=== PATIENT | male | born 1950 | race Caucasian/White ===

== ENCOUNTER → 2017-12-11 07:21 | Outpatient (CLI) | payer MEDICARE, SELFPAY ==
--- NOTE | 2017-12-11 07:23 | CT_ITS ---
STUDY: CT ABDOMEN AND PELVIS WITH CONTRAST REASON FOR EXAM: Male, 67 years old. Epigastric abdominal pain. RADIATION DOSAGE (If Supplied By Facility): CTDIvol = ( 13.08 ) mGy, DLP = ( 661.21 ) mGycm TECHNIQUE: Transaxial images were obtained from the dome of the diaphragm to the symphysis pubis with oral contrast. 100 ml of Isovue 300 contrast was administered. Sagittal and coronal images were reconstructed. Individualized dose optimization techniques were used for this CT. COMPARISON: Prior comparison studies are not available for review at this time. FINDINGS: There is heterogeneous groundglass attenuation at the right lung base. This may be the result of atelectasis or early airspace disease. There is a curvilinear opacity in left lower lobe that may represent subsegmental atelectasis or pulmonary fibrosis. No pleural effusions are visualized. The visualized portions of the heart are within normal limits. Normal liver. There is non-visualization of the gallbladder, which may be secondary to either contraction or a prior cholecystectomy. Normal spleen. Normal pancreas. Normal bilateral adrenal glands. There is a small cystic lesion arising from the posterior cortex of the upper pole of the right kidney measuring 6.5 mm. This is too small to characterize. There is no evidence for hydronephrosis, hydroureter or radiopaque ureteral calculus. Normal left kidney. The gastric wall appears mildly thickened measuring approximately 2.4 cm. There is no evidence for dilated bowel, ascites or pneumoperitoneum. Small bowel has a grossly normal appearance. Stool and enteric contrast is visible throughout the colon with scattered diverticula. There is non-visualization of the appendix. There is mild atherosclerotic calcification of the abdominal aorta, without a demonstrated aneurysm. Normal inferior vena cava. Normal retroperitoneum. Normal urinary bladder. Normal visualized prostate gland. Normal abdominal wall. There is degenerative disc disease at L4-5 with a large Schmorl's node of the inferior endplate of L4. CT/Abdomen/Pelvis WITH Contrast IMPRESSION: 1. Nonspecific thickening of the gastric wall. 2. No CT evidence of acute intra-abdominal disease. Electronically Signed: Malika Hollingsworth MD at 11:27 EDT , Service support ,
[2017-12-11 08:06] LABS: CREATININE FINGERSTICK 1.1 mg/dL (0.70-1.30); EGFR FINGERSTICK > 60.0000 mL/min (>60)
== END ==
PROVIDERS: Family Provider Family Medicine; PCP Family Medicine; Visit Provider Surgery
DX: R10.9 Unspecified abdominal pain (principal); R89.9 Unspecified abnormal finding in specimens from other organs, systems and tissues
CPT/HCPCS: 74177; Q9967

== ENCOUNTER 2017-12-13 05:43 | Day surgery (SDC) | payer MEDICARE, SELFPAY ==
--- NOTE | 2017-12-13 | IMM_PTH ---
PATIENT: ESTHER BALL LOC: EN U#:[id number] AGE/SX: 67/M ROOM: RE12/13/[address]: Dr. Sundeep Holland MD : 1950 BED: DIS: 12/13/2017 SPEC #: [id number] RECD: 12/14/17 11:31 STATUS: LATESHA REOwen #: [id number] FRANK: 12/13/17 00:[address]: Sundeep Holland DEPT: IMMUNOHISTOCHEMISTRY RECD BY: Julissa Chen ENTERED: 12/14/17 11:31 SP TYPE: IMMUNO OTHR DR: Dr. Aldo Ball MD Tissues: A - Stomach, NOS Procedures: H Pylori (initial) PHYSICIAN & INSTITUTION [place] [id number] SPECIMEN INFORMATION: Tissue Source: A ? Antral biopsy Clinical Info: History ulcer, right upper quadrant pain Specimen Number: [id number] CPT code: 26321 METHODOLOGY: Deparaffinized sections of prefer/formalin-fixed tissue or PAP/DQ stained slides are incubated with monoclonal/polyclonal antibodies/oligonucleotide probes. Localization is made via biotin free immunoperoxidase method. Appropriate controls are performed and reacted as expected. Results on target cell population are indicated in the following table: RESULTS: ANTIBODY / CLONE RESULT Block A H Pylori (polyclonal) negative These tests were developed and their performance characteristics determined by [facility]. They may not have been cleared or approved by the U.S. Food and Drug Administration. The FDA has determined that such clearance or approval is not necessary. INTERPRETATION: A. Antral biopsy: Negative for Helicobacter pylori organisms. SJ:chase 12/14/17
[2017-12-13 06:05] VITALS: BP 121/88; PULSE 90; RESP 16; TEMP 36.6; O2SAT 98; BMI 22.6
--- NOTE | 2017-12-13 07:18 | GASB_PTH ---
PATIENT: ESTHER BALL LOC: EN U#:[id number] AGE/SX: 67/M ROOM: RE12/13/[address]: Dr. Sundeep Holland MD : 1950 BED: DIS: 12/13/2017 SPEC #: [id number] RECD: 12/13/17 08:03 STATUS: LATESHA EVELINE #: [id number] FRANK: 12/13/17 07:[address]: Sundeep Holland DEPT: SURGICAL PATHOLOGY RECD BY: Mark Payton ENTERED: 12/13/17 08:03 SP TYPE: Gastric Bx OTHR DR: Dr. Aldo Ball MD Tissues: A - Gastric mucous membrane B - Esophageal mucous membrane Procedures: Special Stain Group II Surgery Specimen Level IV Alcian Blue/PAS (control) HEADER OPERATION: EGD PRE-OP DIAGNOSIS: History ulcer, right upper quadrant pain TISSUE SUBMITTED: A ? Antral biopsy for histo and H. pylori, B ? Distal esophageal biopsy MICROSCOPIC DIAGNOSIS A. Antral biopsy: Mild gastritis. See microscopic description and comment. B. Distal esophageal biopsy: Fragments of gastroesophageal mucosa with changes consistent with gastroesophageal reflux disease. Negative for intestinal metaplasia (goblet cell metaplasia). See comment. SJ:chase 12/14/17 COMMENT A. The results of immunohistochemistry for Helicobacter pylori will be reported separately ([id number]). B. Alcian blue/PAS stain with matched control is used in the evaluation of the specimen. MICROSCOPIC DESCRIPTION Slides are reviewed. A. The specimen shows fragments of gastric mucosa with chronic inflammatory cell infiltrates in the lamina propria consisting of lymphocytes and plasma cells, consistent with mild chronic gastritis. GROSS DESCRIPTION A - Received in fixative is one container labeled with the patient's name and designated antral biopsy. The specimen consists of multiple irregular fragments of light perry soft tissue that in aggregate measure 1 x 0.2 x 0.1 cm. The specimen is totally submitted in one cassette. B - Received in fixative is one container labeled with the patient's name and designated distal esophageal biopsy. The specimen consists of multiple irregular fragments of light perry soft tissue that in aggregate measure 2 x 0.3 x 0.1 cm. The specimen is totally submitted in one cassette. / [place]:chase 12/13/17 TC:3 CPT: 00517 x2, 08767
[2017-12-13 07:29] VITALS: BP 121/88; BP 122/57; RESP 18; TEMP 36.6
--- NOTE | 2017-12-13 07:31 | PCM.OPRPT ---
Problem List (1) Epigastric abdominal pain Status: Acute Report of Operation Date of Procedure: 12/13/17 Pre-Operative Diagnosis: Epigastric abdominal pain Post-Operative Diagnosis: Recinos's esophagus, hiatal hernia, mild antral gastritis Surgery/Procedure Performed:: Esophagogastroduodenoscopy with biopsies Description of Surgical Findings:: Timeout and informed consent was obtained. 67-year-old gentleman was taken to the endoscopy suite. His oropharynx was anesthetized with Topex. He was placed in the left lateral decubitus position. The procedure total of 75 g Demerol and 3.5 mg of Versed were given as intravenous sedation. Flexible gastroscope was inserted into the esophageal inlet. Proximal mid esophagus unremarkable. Hiatal hernia noted EG junction at 44 cm. Findings consistent with Recinos's esophagus. Photographs obtained. The scope was advanced in the stomach very minimal amount of erythema in the antrum noted. The scope was advanced through the pylorus. The first and second portions of the duodenum were very carefully inspected. Photographs were obtained. No evidence of acute inflammation or ulceration. The scope was withdrawn back to the stomach retroflexed the EG junction cardia inspected. A hiatal hernia noted. The greater and lesser curvatures were inspected. The scope was placed back in an antegrade viewing position. Mild erythema of the antrum noted. Biopsies obtained of the antrum. Excess fluid and air was aspirated free. The scope was withdrawn to the distal esophagus. Findings consistent with Recinos's esophagus were identified. The Recinos's appeared to extend just for 2 cm. Multiple biopsies were obtained at that distal esophageal junction. Hemostasis was intact. The scope was further withdrawn without additional abnormality. The procedure was completed with the patient tolerating it well. Impression Hiatal hernia small to moderate. Recinos's esophagus 2 cm. Mild antral gastritis. The patient will be notified of pathology results as they become available. Consideration for follow-up esophagogastroduodenoscopy no greater than 3 years. The patient will be maintained presently on his Nexium therapy. Cc: Dr. Aldo Ball Stage was initiated at 0718. It was completed at 0725 Sundeep Holland M.D., F.A.C.S. Type of Anesthesia:: IV Sedation
[2017-12-13 07:35] VITALS: BP 121/88; BP 125/62; PULSE 82; RESP 16; O2SAT 96
[2017-12-13 07:40] VITALS: BP 118/50; BP 121/88; PULSE 81; RESP 16; O2SAT 96
[2017-12-13 07:49] VITALS: BP 120/58; BP 121/88; PULSE 75; RESP 18; TEMP 36.6; O2SAT 99
[2017-12-13 07:55] VITALS: BP 121/88
== END 2017-12-13 08:22 | disposition home or self-care (01) ==
LOC: EN 05:47 → AC 05:48
PROVIDERS: Family Provider Family Medicine; PCP Family Medicine; Visit Provider Surgery
PROC: (CPT 43239; principal; 2017-12-13 06:55)
DX: K22.70 Barrett's esophagus without dysplasia (principal); K44.9 Diaphragmatic hernia without obstruction or gangrene; K29.70 Gastritis, unspecified, without bleeding; J44.9 Chronic obstructive pulmonary disease, unspecified; Z90.49 Acquired absence of other specified parts of digestive tract
CPT/HCPCS: 43239; 88305; 88313; 88342; 99152; J7120

== ENCOUNTER → 2019-05-16 11:20 | Outpatient (CLI) | payer MEDICARE, SELFPAY ==
[2018-11-19 08:08] VITALS: BMI 22.6
--- NOTE | 2019-05-16 11:24 | RAD_ITS ---
STUDY: X-RAY - LEFT HAND, ATTENTION first digit REASON FOR EXAM: Male, 69 years old. pricked by a metal object, tip of left thumb about 3 months ago, possible foreign body still, some pain TECHNIQUE: 3 view(s) of the digit were obtained. COMPARISON: None. FINDINGS: Normal metacarpal head. Normal metacarpophalangeal joint. Normal proximal phalanx. Normal distal phalanx. Normal interphalangeal joint. No radiopaque foreign body. RAD/Finger(s) Min 2 Views IMPRESSION: No radiopaque foreign body. Electronically Signed: Santana Michaels MD (Brooks) at 14:37 EST , Service support ,
== END ==
PROVIDERS: Family Provider Family Medicine; PCP Family Medicine; Referring Provider Family Medicine; Visit Provider Family Medicine
DX: S60.352A Superficial foreign body of left thumb, initial encounter (principal)
CPT/HCPCS: 73140

== ENCOUNTER → 2019-08-11 14:51 | Outpatient (CLI) | payer MEDICARE, SELFPAY ==
[2018-11-19 08:08] VITALS: BMI 22.6
[2019-08-11 16:19] LABS: PSA,Total - Annual Screen 0.72 ng/mL (0.00-4.00)
== END ==
PROVIDERS: PCP Family Medicine; Referring Provider Urology; Visit Provider Urology
DX: Z12.5 Encounter for screening for malignant neoplasm of prostate (principal)
CPT/HCPCS: 36415; 84153; G0103

== ENCOUNTER → 2020-08-11 10:00 | Outpatient (CLI) | payer MEDICARE, SELFPAY ==
[2018-11-19 08:08] VITALS: BMI 22.6
--- NOTE | 2020-08-05 09:58 | EKG12_ITS ---
Test Reason : PRE SURGERY Blood Pressure : / mmHG Vent. Rate : 089 BPM Atrial Rate : 089 BPM P-R Int : 140 ms QRS Dur : 088 ms QT Int : 328 ms P-R-T Axes : 089 100 -46 degrees QTc Int : 399 ms Normal sinus rhythm Right atrial enlargement T wave abnormality, consider inferior ischemia T wave abnormality, consider anterolateral ischemia Abnormal ECG Confirmed by BELKIS PRICE, RAIZA ([id number]), editor publications YG FARMER ([id number]) on 08/06/2020 8:35:16 AM Referred By: German Barajas Confirmed By:LUIS MIGUEL TAMAYO MD
[2020-08-05 10:26] LABS: Absolute Lymphocyte Count 1.01 X10^3/uL (0.83-4.51); Absolute Neutrophil Count 6.6 X10^3/uL (2.0-7.7); Basophil# 0.03 X10^3/uL; Basophil% 0.3 % (0-1); Eosinophil# 0.33 X10^3/uL; Eosinophils% 3.8 % (0-5); Hematocrit 45.7 % (40-54); Hemoglobin 14.9 g/dL (13.0-16.5); Lymphocyte # 1.01 X10^3/ul (4.0); Lymphocyte % 11.6 % (19-41); Mean Corp Hgb Conc 32.6 g/dL (32-36); Mean Corpuscular Hgb 30.7 pg (27.0-32.0); Mean Corpuscular Volume 94.2 fL (80-94); Mean Platelet Vol. 10.2 fl (6.2-12.0); Monocyte# 0.75 X10^3/uL; Monocyte% 8.6 % (0-10); NRBC Flagged by Analyzer 0 % (0-5); Neutrophil # 6.55 X10^3/uL (2.7-7.7); Neutrophil % 75.5 % (47-70); Platelet Count 175 K/mm3 (150-450); RBC Distribution Width CV 12.5 % (11.6-14.6); RBC Distribution Width SD 43.5 fl (35.1-43.9); Red Blood Count 4.85 M/mm3 (4.6-6.2); White Blood Count 8.7 K/mm3 (4.4-11.0)
== END ==
PROVIDERS: Anesthesiology; PCP Family Medicine; Referring Provider Urology; Visit Provider Urology
DX: Z01.818 Encounter for other preprocedural examination (principal)
CPT/HCPCS: 36415; 85025; 93005

== ENCOUNTER → 2020-09-06 06:11 | Outpatient (CLI) | payer MEDICARE, SELFPAY ==
[2020-09-01 13:33] VITALS: BMI 22.7
--- NOTE | 2020-09-06 06:14 | ECHOD_ITS ---
Reason For Study: Abn EKG Procedure This was a 2D Doppler, Color Flow transthoracic echocardiogram. Exam performed in department. Left Ventricle Normal LV size. Mild concentric left ventricular hypertrophy. Left ventricular systolic function is normal. The estimated ejection fraction is 65 %. Stage 1 diastolic dysfunction. No regional wall motion abnormalities noted. Right Ventricle Normal RV size. Normal systolic function. Atria Normal left atrium. Normal right atrium. Mitral Valve Normal mitral valve. Tricuspid Valve Normal tricuspid valve. Aortic Valve Trisinus/trileaflet aortic valve. Pulmonic Valve Normal pulmonic valve. Great Vessels Normal aortic root. The pulmonary artery is normal size. Normal inferior vena cava. Pericardium/Pleural No pericardial effusion. MMode/2D Measurements & Calculations LVIDd: 3.9 cm IVSd: 1.2 cm Ao root diam: 3.1 cm LVIDs: 2.5 cm LVPWd: 1.2 cm RVDd: 2.7 cm FS: 34.9 % LAV(MOD-bp): 23.4 ml LVAd ap4: 19.3 cm2 SV(MOD-sp4): 24.9 ml LAV(MOD-bp) Indexed: 12.6 ml/m2 EDV(MOD-sp4): 38.4 ml LAV(MOD-sp2): 32.9 ml EDV(sp4-el): 39.1 ml LAV(MOD-sp4): 15.6 ml LVAs ap4: 9.8 cm2 ESV(MOD-sp4): 13.5 ml ESV(sp4-el): 12.5 ml EF(MOD-sp4): 64.8 % EF(sp4-el): 67.9 % SV(sp4-el): 26.5 ml LA A4 area: 9.2 cm2 LA dimension(2D): 2.4 cm RA A4 area: 7.7 cm2 Doppler Measurements & Calculations MV E max chucky: 60.8 cm/sec Lat Peak E' Chucky: 6.6 cm/sec Med Peak E' Chucky: 7.0 cm/sec MV A max chucky: 68.7 cm/sec E/E' lat: 9.2 E/E' med: 8.6 MV E/A: 0.88 Ao V2 max: 103.1 cm/sec LV V1 max: 101.2 cm/sec PA V2 max: 82.8 cm/sec Ao max P.3 mmHg LV V1 max P.1 mmHg Ao V2 mean: 80.0 cm/sec Ao mean P.7 mmHg Ao V2 VTI: 21.7 cm Interpretation Summary Normal LV size. Mild concentric left ventricular hypertrophy. Left ventricular systolic function is normal. The estimated ejection fraction is 65 %. Stage 1 diastolic dysfunction. Ordering Physician: Jad Carpenter Referring Physician: Aldo Ball Performed By: Lizeth Muller, JUDY, RVT
--- NOTE | 2020-09-06 13:12 | STRESSREP ---
Stress Test Report Exercise myocardial perfusion stress test. 70-year-old man with a history of chest pain coronary artery disease. Resting EKG demonstrates normal sinus rhythm with a rate of 77 bpm normal intervals are noted resting blood pressure is 150/82 mmHg. The patient exercised according to regular Uvaldo protocol for a total duration of 6 minutes. The maximum heart rate attained was 155 bpm which was 102% of max impacted heart rate the maximum workload was 7 metabolic equivalents. At rest T wave inversions were noted in lead V4 and V5. At peak exercise these T wave inversions persisted throughout with T wave inversions noted in leads II, III and aVF as well. No clinical angina was noted the test was terminated due to the target heart rate being achieved. The peak blood pressure was 180/72 mmHg. Myocardial perfusion protocol. 11.5 mCi of technetium 99m sestamibi was injected at rest. Patient exercised according to regular Uvaldo protocol for 6 minutes and at peak exercise 33.7 mCi of technetium 99m sestamibi was injected stress images were obtained stress and rest images were reconstructed and compared in the short axis vertical long horizontal long axis. Gated images were also obtained Perfusion SPECT analysis: Review of the stress images demonstrate normal uptake of tracer noted in all areas of myocardium the resting images similar demonstrate normal uptake of tracer noted in all areas of myocardium. No areas of reversibility are noted to suggest ischemia no previous infarct is noted. Gated SPECT analysis: The gated ejection fraction is noted to be 65%. Conclusion: Normal exercise myocardial perfusion stress test at a moderate workload. Preserved ejection fraction.
== END ==
PROVIDERS: PCP Family Medicine; Referring Provider Internal Medicine Cardiovascular Disease; Visit Provider Internal Medicine Cardiovascular Disease
DX: Z01.810 Encounter for preprocedural cardiovascular examination (principal); R94.31 Abnormal electrocardiogram [ECG] [EKG]
CPT/HCPCS: 78452; 93017; 93306; A9500; A4216

== ENCOUNTER → 2021-02-03 07:49 | Outpatient (CLI) | payer MEDICARE, SELFPAY ==
[2020-09-01 13:33] VITALS: BMI 22.7
--- NOTE | 2021-02-03 07:53 | CDU_ITS ---
Reason For Study: Atherosclerosis of arteries Rt. Velocities/BP Lt. Velocities/BP Prox CCA 70.8/13.4 cm/sec. Prox CCA 57.8/14.2 cm/sec. Mid CCA 56.5/12.1 cm/sec. Mid CCA 56.1/13.3 cm/sec. Dist CCA 40.9/12.6 cm/sec. Dist CCA 52.6/13.3 cm/sec. Prox ICA 37.1/11.6 cm/sec. Prox ICA 47.4/16.8 cm/sec. Mid ICA 57/23 cm/sec. Mid ICA 46.5/18.6 cm/sec. Dist ICA 76.8/25.8 cm/sec. Dist ICA 89.3/34.4 cm/sec. Rt. ICA/CCA = 1.36. Lt. ICA/CCA = 1.59. Prox ECA 87.2/8.8 cm/sec. Prox ECA 63.1/6.4 cm/sec. Rt. Vert. 56.1/15.1 cm/sec. Lt. Vert. 58.6/15.7 cm/sec. Right Extracranial There is homogeneous, smooth atherosclerotic plaque noted in the right common carotid artery. There is homogeneous, smooth atherosclerotic plaque noted in the right internal carotid artery. There is intimal thickening but no significant atherosclerotic plaque noted in the right external carotid artery. Antegrade flow is noted in the right vertebral artery. Left Extracranial There is homogeneous, smooth atherosclerotic plaque noted in the left common carotid artery. There is heterogeneous, irregular atherosclerotic plaque noted in the left internal carotid artery. There is heterogeneous, irregular atherosclerotic plaque noted in the left external carotid artery. Antegrade flow is noted in the left vertebral artery. Procedure Carotid Duplex 21721. This is a Carotid Duplex examination using B-mode, color flow and specral Doppler. Exam performed in department. VL/Carotid Duplex Ultrasound Interpretation Summary Mild (<50%) stenosis right extracranial internal carotid. Mild (<50%) stenosis left extracranial internal carotid. Flow within the vertebral arteries is antegrade bilaterally. Ordering Physician: Aldo Ball Referring Physician: Aldo Ball MD Performed By: Yanelis Link Rene
== END ==
PROVIDERS: PCP Family Medicine; Visit Provider Family Medicine
DX: I65.23 Occlusion and stenosis of bilateral carotid arteries (principal); I70.8 Atherosclerosis of other arteries; I79.8 Other disorders of arteries, arterioles and capillaries in diseases classified elsewhere
CPT/HCPCS: 93880

== ENCOUNTER → 2021-04-13 14:33 | Outpatient (CLI) | payer MEDICARE, SELFPAY ==
[2021-04-13 18:03] LABS: Cholesterol 200 mg/dL (200); High Density Lipoprotein 66 mg/dL; Triglycerides 60 mg/dL; Very Low Density Lipoprotein 12 mg/dL (5-40)
== END ==
PROVIDERS: PCP Family Medicine; Referring Provider Family Medicine; Visit Provider Family Medicine
DX: I70.8 Atherosclerosis of other arteries (principal)
CPT/HCPCS: 36415; 80061

== ENCOUNTER → 2021-05-25 10:44 | Outpatient (CLI) | payer MEDICARE, SELFPAY ==
[2021-05-25 12:41] LABS: AST(SGOT) 15 U/L (15-37); Alanine Aminotransfer ALT/SGPT 24 U/L (16-61); Albumin, Serum 3.6 g/dL (3.2-5.0); Alkaline Phosphatase 30 U/L (45-117); Bilirubin, Direct 0.17 mg/dL (0.00-0.30); Cholesterol 207 mg/dL (200); Globulin 3.3 g/dL (2.2-4.2); High Density Lipoprotein 64 mg/dL; Protein, Total 6.9 g/dL (6.4-8.2); Triglycerides 62 mg/dL; Very Low Density Lipoprotein 12 mg/dL (5-40)
== END ==
PROVIDERS: PCP Family Medicine; Referring Provider Family Medicine; Visit Provider Family Medicine
DX: I70.8 Atherosclerosis of other arteries (principal)
CPT/HCPCS: 36415; 80061; 80076

== ENCOUNTER → 2021-10-13 | Outpatient (CLI) | payer MEDICARE, SELFPAY ==
[2021-10-13 15:24] LABS: ALB/GLOB Ratio 1.1 RATIO (0.9-2.4); AST(SGOT) 17 U/L (15-37); Alanine Aminotransfer ALT/SGPT 28 U/L (16-61); Albumin, Serum 3.9 g/dL (3.2-5.0); Alkaline Phosphatase 32 U/L (45-117); Anion Gap 6 (5-15); BUN 24 mg/dL (7-18); BUN/Creat Ratio 23.3 RATIO (10-20); Calcium,Total 9.3 mg/dL (8.5-10.1); Chloride 108 mmol/L (98-107); Cholesterol 224 mg/dL (200); Creatinine, Serum 1.03 mg/dL (0.70-1.30); EST Glomerular Filtration Rate 76 mL/min (>60); Est Glom Filt Rate - Afr Amer 92 mL/min (>60); Globulin 3.5 g/dL (2.2-4.2); Glucose 100 mg/dL (74-106); High Density Lipoprotein 72 mg/dL; Potassium 3.8 mmol/L (3.5-5.1); Protein, Total 7.4 g/dL (6.4-8.2); Sodium Level 142 mmol/L (136-145); Triglycerides 66 mg/dL; Very Low Density Lipoprotein 13 mg/dL (5-40)
== END | disposition home or self-care (01) ==
LOC: MTLAB 11:52
PROVIDERS: PCP Family Medicine; Referring Provider Family Medicine; Visit Provider Family Medicine
DX: I70.90 Unspecified atherosclerosis (principal); I70.8 Atherosclerosis of other arteries
CPT/HCPCS: 36415; 80053; 80061

== ENCOUNTER → 2021-11-29 | Outpatient (CLI) | payer MEDICARE, SELFPAY ==
[2021-11-29 18:00] LABS: Absolute Lymphocyte Count 1.35 X10^3/uL (0.83-4.51); Absolute Neutrophil Count 7.4 X10^3/uL (2.0-7.7); Basophil# 0.06 X10^3/uL; Basophil% 0.6 % (0-1); Eosinophil# 0.44 X10^3/uL; Eosinophils% 4.4 % (0-5); Hematocrit 46.2 % (40-54); Hemoglobin 15.7 g/dL (13.0-16.5); Lymphocyte # 1.35 X10^3/ul (0.83-4.51); Lymphocyte % 13.4 % (19-41); Mean Corpuscular Volume 94.3 fL (80-94); Mean Platelet Vol. 10.7 fl (6.2-12.0); Monocyte# 0.74 X10^3/uL; Monocyte% 7.4 % (0-10); NRBC Flagged by Analyzer 0 % (0-5); Neutrophil # 7.43 X10^3/uL (2.7-7.7); Neutrophil % 73.8 % (47-70); Platelet Count 197 K/mm3 (150-450); RBC Distribution Width CV 12.6 % (11.6-14.6); RBC Distribution Width SD 43.4 fl (35.1-43.9); White Blood Count 10.1 K/mm3 (4.4-11.0)
[2021-11-29 18:22] LABS: BNP,B-Type NATRIURETIC PEPTIDE 28.1 pg/mL (0-100)
[2021-11-29 20:21] LABS: ALB/GLOB Ratio 1.2 RATIO (0.9-2.4); AST(SGOT) 21 U/L (15-37); Alanine Aminotransfer ALT/SGPT 32 U/L (16-61); Alkaline Phosphatase 32 U/L (45-117); Anion Gap 4 (5-15); BUN 24 mg/dL (7-18); BUN/Creat Ratio 21.2 RATIO (10-20); CRP < 2.90 mg/L (0.0-3.0); Calcium,Total 9.2 mg/dL (8.5-10.1); Chloride 108 mmol/L (98-107); Creatinine, Serum 1.13 mg/dL (0.70-1.30); EST Glomerular Filtration Rate 68 mL/min (>60); Est Glom Filt Rate - Afr Amer 82 mL/min (>60); Globulin 3.3 g/dL (2.2-4.2); Glucose 106 mg/dL (74-106); Potassium 4.2 mmol/L (3.5-5.1); Prealbumin 29.8 mg/dL (20.0-40.0); Protein, Total 7.3 g/dL (6.4-8.2); Rheumatoid Factor < 10.0 IU/mL (<15); Sodium Level 139 mmol/L (136-145)
[2021-12-01 14:10] LABS: Anti-Centromere B Ab <0.2 AI (0.0-0.9); Anti-Chromatin <0.2 AI (0.0-0.9); Anti-Jo <0.2 AI (0.0-0.9); Anti-Scleroderma-70 AB <0.2 AI (0.0-0.9); RNP Ab <0.2 AI (0.0-0.9); SJOGREN'S Anti-SS-A test < 0.2 AI (0.0-0.9); SJOGREN'S Anti-SS-B test < 0.2 AI (0.0-0.9); Smith Ab <0.2 AI (0.0-0.9)
[2021-12-02 17:15] LABS: Anti-dsDNA Ab 2 IU/mL (0-9)
== END | disposition home or self-care (01) ==
LOC: LAB 17:41
PROVIDERS: PCP Family Medicine; Referring Provider Family Medicine; Visit Provider Family Medicine
DX: R63.4 Abnormal weight loss (principal); I50.30 Unspecified diastolic (congestive) heart failure; J84.10 Pulmonary fibrosis, unspecified
CPT/HCPCS: 36415; 80053; 83880; 84134; 85025; 86140; 86225; 86235; 86431

== ENCOUNTER → 2021-12-12 | Outpatient (CLI) | payer MEDICARE, SELFPAY ==
--- NOTE | 2021-12-12 12:26 | PFTCOMP ---
COMPLETE PULMONARY FUNCTION TEST INTERPRETATION Brief HPI: Patient is a 71-year-old male, currently under the care of Dr. Ball, who presents to [facility] for complete pulmonary function tests secondary to diagnosis of COPD. Respiratory therapist reports good effort and reproducible results. Interpretation: Forced expiration spirometry shows a moderately severe large airways obstructive ventilatory defect with an FEV1 of 53% predicted. There is a significant bronchodilator response in FVC and FEV1 by strict ATS criteria. Spirograms are of good quality and plateau slowly, indicating slowly emptying areas of the lungs. The respiratory flow volume loop shows decreased expiratory flow rates at all lung volumes consistent with airway obstruction. Lung volumes by body plethysmography show a normal total lung capacity at 6.07 L, 93% predicted. All other lung volumes are within normal limits. Diffusion capacity by carbon monoxide is at the lower limit of normal at 71% predicted. The airway resistance is elevated. No previous pulmonary function tests were available for review. Impression: Partially reversible moderately severe large airways obstructive ventilatory defect with diffusion capacity at the lower limit of normal, in a pattern consistent with COPD/asthma overlap syndrome
== END | disposition home or self-care (01) ==
LOC: PSN 08:25
PROVIDERS: PCP Family Medicine; Referring Provider Family Medicine; Visit Provider Family Medicine
DX: J44.9 Chronic obstructive pulmonary disease, unspecified (principal)
CPT/HCPCS: 94060; 94726; 94729

== ENCOUNTER → 2021-12-16 | Outpatient (CLI) | payer MEDICARE, SELFPAY ==
--- NOTE | 2021-12-16 08:03 | CT_ITS ---
EXAM: CT CHEST WITHOUT INTRAVENOUS CONTRAST CLINICAL INDICATION: pulmonary fibrosis and weight loss TECHNIQUE: Helically acquired images were obtained of the chest without intravenous contrast. This CT exam was performed using one or more of the following dose reduction techniques: automated exposure control, adjustment of the mA and/or kV according to patient size, and/or use of iterative reconstruction technique. This report was created using [employer] report generation technology. COMPARISON: None. FINDINGS: LUNGS AND PLEURAL SPACES: There are mild emphysematous bulla seen within the upper and lower lobes. There is no focal consolidation. No mass. No pleural effusion or thickening. No pneumothorax. HEART: Unremarkable. Heart size is normal. No pericardial effusion. No significant coronary artery calcifications. MEDIASTINUM: Unremarkable. No mediastinal or hilar adenopathy. Esophagus is unremarkable. No hiatal hernia. THYROID: Unremarkable. No thyroid lesions. BONES/JOINTS: Unremarkable. No suspicious lytic or blastic abnormality. VASCULATURE: Unremarkable. Thoracic aorta is non-dilated. CT/Chest without Contrast IMPRESSION: Mild emphysematous bulla seen throughout the lungs. There is no acute pulmonary abnormality identified. Electronically Signed: Raad Anderson MD at 3:05 EDT ,
== END | disposition home or self-care (01) ==
LOC: CT 08:01
PROVIDERS: PCP Family Medicine; Referring Provider Family Medicine; Visit Provider Family Medicine
DX: J44.9 Chronic obstructive pulmonary disease, unspecified (principal); J84.10 Pulmonary fibrosis, unspecified
CPT/HCPCS: 71250

== ENCOUNTER → 2022-01-19 | Outpatient (CLI) | payer MEDICARE, SELFPAY | END | disposition home or self-care (01) | LOC: LAB 14:09 | PROVIDERS: PCP Family Medicine; Visit Provider Urology | DX: Z12.5 Encounter for screening for malignant neoplasm of prostate (principal) | CPT/HCPCS: 36415; 84153; G0103 ==

== ENCOUNTER → 2022-11-10 | Outpatient (CLI) | payer MEDICARE, SELFPAY ==
[2022-11-10 18:02] LABS: Absolute Neutrophil Count 5.5 X10^3/uL (2.0-7.7); Basophil# 0.03 X10^3/uL; Basophil% 0.4 % (0-1); Eosinophil# 0.26 X10^3/uL; Eosinophils% 3.6 % (0-5); Hematocrit 41.4 % (40-54); Lymphocyte % 9.8 % (19-41); Mean Corp Hgb Conc 33.8 g/dL (32-36); Mean Corpuscular Hgb 32.5 pg (27.0-32.0); Mean Corpuscular Volume 96.1 fL (80-94); Monocyte# 0.62 X10^3/uL; Monocyte% 8.7 % (0-10); NRBC Flagged by Analyzer 0 % (0-5); Neutrophil % 77.2 % (47-70); Platelet Count 206 K/mm3 (150-450); RBC Distribution Width CV 12.6 % (11.6-14.6); RBC Distribution Width SD 44.5 fl (35.1-43.9); Red Blood Count 4.31 M/mm3 (4.6-6.2); White Blood Count 7.1 K/mm3 (4.4-11.0)
[2022-11-10 18:36] LABS: ALB/GLOB Ratio 1.1 RATIO (0.9-2.4); AST(SGOT) 16 U/L (15-37); Alanine Aminotransfer ALT/SGPT 24 U/L (16-61); Albumin, Serum 3.5 g/dL (3.2-5.0); Alkaline Phosphatase 31 U/L (45-117); Anion Gap 6 (5-15); BUN 24 mg/dL (7-18); BUN/Creat Ratio 22.2 RATIO (10-20); Calcium,Total 9.2 mg/dL (8.5-10.1); Chloride 109 mmol/L (98-107); Creatinine, Serum 1.08 mg/dL (0.70-1.30); EST Glomerular Filtration Rate 72 mL/min (>60); Est Glom Filt Rate - Afr Amer 87 mL/min (>60); Globulin 3.2 g/dL (2.2-4.2); Glucose 97 mg/dL (74-106); PSA,Total- Diagnostic 0.93 ng/mL (0.0-4.0); Potassium 4.1 mmol/L (3.5-5.1); Protein, Total 6.7 g/dL (6.4-8.2); Sodium Level 141 mmol/L (136-145)
== END | disposition home or self-care (01) ==
LOC: MFPLAB 14:20
PROVIDERS: PCP Family Medicine; Visit Provider Family Medicine
DX: J44.9 Chronic obstructive pulmonary disease, unspecified (principal); N40.0 Benign prostatic hyperplasia without lower urinary tract symptoms
CPT/HCPCS: 36415; 80053; 84153; 85025

== ENCOUNTER → 2023-01-30 | Outpatient (CLI) | payer MEDICARE, SELFPAY ==
[2023-01-30 16:30] LABS: PSA,Total - Annual Screen 0.51 ng/mL (0.00-4.00)
== END | disposition home or self-care (01) ==
LOC: LAB 15:14
PROVIDERS: PCP Family Medicine; Referring Provider Urology; Visit Provider Urology
DX: Z12.5 Encounter for screening for malignant neoplasm of prostate (principal)
CPT/HCPCS: 36415; 84153; G0103

== ENCOUNTER 2023-04-04 12:12 | Emergency (ER) | payer MEDICARE, SELFPAY ==
[2023-04-04 12:13] VITALS: BP 168/86; PULSE 94; RESP 14; TEMP 36.2; O2SAT 96; BMI 20.5
--- NOTE | 2023-04-04 12:36 | EKG12_ITS ---
Test Reason : CP Blood Pressure : / mmHG Vent. Rate : 086 BPM Atrial Rate : 086 BPM P-R Int : 140 ms QRS Dur : 096 ms QT Int : 350 ms P-R-T Axes : 085 087 226 degrees QTc Int : 418 ms Normal sinus rhythm Right atrial enlargement Possible Right ventricular hypertrophy ST & T wave abnormality, consider inferior ischemia ST & T wave abnormality, consider anterolateral ischemia Abnormal ECG Confirmed by HIREN PERKINS MD ([id number]), manuscript editor CHUNG CASTRO ([id number]) on 04/09/2023 2:13:56 PM Referred By: PEARL Confirmed By:HIREN PERKINS MD
--- NOTE | 2023-04-04 12:37 | ED.VIS.CHEST ---
HPI History of Present Illness Chief Complaint: Chest Pain Detail of Chief Complaint: Chest pain Informant: patient Narrative Narrative: Patient presents to the emergency department complaint chest pain that started 2 days ago. He denies injury. Describes a soreness in his chest and sternum is worse with certain movements. It does not bother him to sleep at night. He denies nausea or vomiting or diaphoresis. He denies shortness of breath. Tells me had a stress test 5 or 6 years ago that was normal. He has no heart history. Patient states that he has a guitar that has been playing since 1972 that weighs about 11 pounds and he lays it on his chest and at about where it hits him where he has pain. No recent travel or surgery. No history of PE or DVT. [facility] Medical History (Updated 04/04/23 @ 13:[address] Mayi Coubrn, ) BPH (benign prostatic hyperplasia) COPD (chronic obstructive pulmonary disease) Epigastric abdominal pain Pulmonary fibrosis Rectal abscess Thrombocytopenia Home Medications multivitamin 1 cap PO DAILY 11/12/18 [History Last Taken Unknown] albuterol sulfate 90 mcg/actuation aerosol inhaler 2 puff inhalation Q6H PRN shortness of breath or wheezing #8.5 grams 04/05/22 [Rx Last Taken Unknown] amlodipine 5 mg tablet 2.5 mg PO DAILY 03/27/23 [History Last Taken Unknown] fluticasone fur. 200 mcg-umeclid 62.5 mcg-vilant 25 mcg inhalat.powder (Trelegy Ellipta) 1 inh inhalation DAILY #60 ea 03/27/23 [Rx Last Taken Unknown] finasteride 5 mg tablet mg 04/04/23 [History Last Taken Unknown] Allergy/AdvReac Type Severity Reaction Status Date / Time No Known Allergies Allergy Verified 04/04/23 12:14 Family History Mother Hypertension Father COPD (chronic obstructive pulmonary disease) Surgical History H/O vein stripping History of cholecystectomy History of cystoscopy History of tonsillectomy Social History Smoking Status: Never smoker Electronic Cigarette Use: not used second hand exposure: No alcohol intake: never substance use type: former substance user Date of last use: Used Marijuana ROS ROS ED Review of Systems ROS Unobtainable: other Constitutional Constitutional ED: Reports lethargy; Denies chills, fever(s), sweats or weight loss Eyes Eyes: Denies blurry vision, change in vision or diplopia ENT ENT ED: Denies rhinorrhea or sore throat Cardiovascular Cardiovascular: Reports chest pain; Denies orthopnea or racing heartbeat Respiratory/Chest Respiratory/Chest: Denies cough, dyspnea, dyspnea on exertion, orthopnea or sputum Gastrointestinal Gastrointestinal: Denies abdominal pain, diarrhea, nausea or vomiting Genitourinary Genitourinary ED: Denies dysuria, hematuria or urinary frequency Musculoskeletal Musculoskeletal: Denies arthralgias, back pain, myalgias or neck pain Integumentary Denies abscess, Abrasions or rash Neurologic Neurologic: Denies headache(s) or weakness Psychiatric Psychiatric: Denies anxiety, depression or suicidal thoughts Endocrine Endocrinology: Denies polydipsia, polyphagia or polyuria Hematologic/Lymphatic Hematologic/Lymphatic: Denies easy bleeding, easy bruising or lymphadenopathy Allergic/Immunologic Allergic/Immunologic ED: Denies mouth swelling, tongue swelling or urticaria EXAM Physical Exam Const Vital Signs: 04/04/23 12:13 Temperature 97.2 F L Temperature Source Temporal Pulse Rate 94 Respiratory Rate 14 Blood Pressure 168/86 H Blood Pressure Mean 113 Pulse Ox 96 Oxygen Delivery Method Room Air Positive well nourished and well developed General Appearance ED: well developed and NAD HEENT Reports TM's clear and moist mucous membranes normocephalic and atraumatic; Negative for trauma or tenderness Tympanic Membrane ED: Yes TM's clear Eyes PERRL and EOMs intact bilaterally General Eye ED: Negative for pale conjunctiva or scleral icterus Neck no lymphadenopathy, supple and no JVD General: Negative for tenderness Chest Wall inspection of chest normal Chest Narrative: Tenderness palpation over the sternum that seems to reproduce his pain Chest: Negative for tenderness Resp normal respiratory effort and clear to auscultation bilaterally Effort and Inspection: Negative for respiratory distress or pain with movement Auscultation: Negative for rhonchi, wheezes or diminished lung sounds Cardio regular rate, regular rhythm, S1 normal heart sound, S2 normal heart sound and no murmurs Peripheral Pulses: pulses 2+ throughout GI normal to inspection, nondistended, normoactive bowel sounds, soft to palpation, non-tender, non-distended and no masses Back/Spine no CVA tenderness and no thoracic nor lumbar tenderness Extremity normal to inspection General Extremety ED: Negative for edema General Extremity: Negative for edema Neuro oriented x3, CN's II-XII intact bilaterally, no sensory deficits noted and gait normal Sensorium / Orientation: awake, alert, oriented to person, oriented to place and oriented to time Motor Exam: strength 5/5 throughout and strength abnormal Psych mental status grossly normal Skin no rashes or lesions noted and no wounds MDM MDM MDM Narrative Medical decision making narrative: Patient presents to the emergency department with 2-day history of chest pain that is reproducible and worse with movement. Given his age wanted to rule out acute coronary syndrome versus chest wall pain. Also wanted to rule out pneumothorax or infiltrate. IV line established. 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 EKG obtained showed sinus rhythm with a rate of [address] depression through the anterior and inferior leads however when compared with prior EKG from July 2020 these changes are chronic. CBC with differential was unremarkable. Troponin was normal at 6. Chemistries unremarkable. Chest x-ray showed no evidence of pneumothorax or infiltrate or acute disease process. This time I suspect pain likely musculoskeletal. Recommended follow-up with his primary care physician. He will stick to Tylenol for discomfort and he is advised to use a barrier between his chest wall and his guitar when he plays. Lab Data Attestation: I reviewed the patient's lab results. Labs: Laboratory Results - last 24 hr 04/04/23 12:32 WBC 7.4 RBC 4.81 Hgb 15.5 Hct 45.8 MCV 95.2 H MCH 32.2 H MCHC 33.8 RDW Std Deviation 43.9 RDW Coeff of Jordan 12.4 Plt Count 169 MPV 10.6 Immature Gran % (Auto) 0.300 Neut % (Auto) 73.0 H Lymph % (Auto) 13.5 L Barnwell % (Auto) 8.5 Eos % (Auto) 4.2 Baso % (Auto) 0.5 Absolute Neuts (auto) 5.4 Absolute Lymphs (auto) 1.00 Nucleated RBC % 0 Sodium 138 Potassium 4.0 Chloride 108 H Carbon Dioxide 26.0 Anion Gap 4 L BUN 24 H Creatinine 1.09 Estim Creat Clear Calc 57.77 Est GFR (MDRD) Af Amer 86 Est GFR (MDRD) Non-Af 71 BUN/Creatinine Ratio 22.0 H Glucose 113 H Calcium 9.4 Troponin I High Sens 6 Radiography Diagnostic Testing: Clinical Impression(s) from Imaging Studies Chest X-Ray 04/04/23 12:45 IMPRESSION: No radiographic evidence of acute cardiopulmonary disease. Electronically Signed: May Chin MD at 12:58 EDT , 1 view chest x-ray obtained interpreted by myself as no evidence of infiltrate or pneumothorax or acute disease process. Radiology in agreement. EKG Initial EKG: Attestation: I personally reviewed and interpreted this EKG as follows: Comments: Sinus rhythm with a rate of [address] changes Prior EKG tracings: available for review Prior: Unchanged Discharge Plan Triage Chief Complaint: Chest Pain ED Provider: Mayi Coburn Dx/Rx/DC Orders Clinical Impression: Chest wall pain Instructions: ED Chest Wall Contusion, ED Chest Wall Pain, Costochondritis Prescriptions: No Action multivitamin capsule capsule 1 cap PO DAILY albuterol sulfate 90 mcg/actuation HFA aerosol inhaler 2 puff inhalation Q6H PRN (Reason: shortness of breath or wheezing) Qty: 8.5 1RF amlodipine 5 mg tablet 2.5 mg PO DAILY Patient Comments: TAKE 1/2 (ONE-HALF) TO 1 (ONE) TABLET BY MOUTH ONCE DAILY Trelegy Ellipta 200-62.5-25 mcg blister with device 1 inh inhalation DAILY Qty: 60 11RF finasteride 5 mg tablet Patient Comments: TAKE 1 TABLET BY MOUTH EVERY DAY Primary Care Provider: Aldo Ball Referrals: Aldo Ball MD [Primary Care Provider] - 5-7 Days Disposition Disposition: Home, Self Care
[2023-04-04 12:45] LABS: Absolute Neutrophil Count 5.4 X10^3/uL (2.0-7.7); Basophil# 0.04 X10^3/uL; Basophil% 0.5 % (0-1); Eosinophil# 0.31 X10^3/uL; Eosinophils% 4.2 % (0-5); Hematocrit 45.8 % (40-54); Hemoglobin 15.5 g/dL (13.0-16.5); Lymphocyte % 13.5 % (19-41); Mean Corp Hgb Conc 33.8 g/dL (32-36); Mean Corpuscular Hgb 32.2 pg (27.0-32.0); Mean Corpuscular Volume 95.2 fL (80-94); Mean Platelet Vol. 10.6 fl (6.2-12.0); Monocyte# 0.63 X10^3/uL; Monocyte% 8.5 % (0-10); NRBC Flagged by Analyzer 0 % (0-5); Neutrophil # 5.39 X10^3/uL (2.7-7.7); Platelet Count 169 K/mm3 (150-450); RBC Distribution Width CV 12.4 % (11.6-14.6); RBC Distribution Width SD 43.9 fl (35.1-43.9); Red Blood Count 4.81 M/mm3 (4.6-6.2); White Blood Count 7.4 K/mm3 (4.4-11.0)
--- NOTE | 2023-04-04 12:45 | RAD_ITS ---
INDICATION: chest pain EXAMINATION/TECHNIQUE: X-RAY - XR Chest 1 View COMPARISON: June 03, 2014 FINDINGS: LINES/DEVICES: None. LUNGS: The lungs remain hyperinflated. No new consolidation, edema or effusion. No pneumothorax. MEDIASTINUM AND CARDIOVASCULAR STRUCTURES: Cardiac silhouette not enlarged. Central airways and mediastinal contour are unremarkable. BONES AND SOFT TISSUES: Unremarkable. RAD/Chest 1 View (Portable) IMPRESSION: No radiographic evidence of acute cardiopulmonary disease. Electronically Signed: May Chin MD at 12:58 EDT ,
[2023-04-04] MEDS: 0.9% Normal Saline (1000mL) 1,000 ML 150 ML IV (12:54)
[2023-04-04 13:04] LABS: Anion Gap 4 (5-15); BUN 24 mg/dL (7-18); Calcium,Total 9.4 mg/dL (8.5-10.1); Chloride 108 mmol/L (98-107); Creatinine, Serum 1.09 mg/dL (0.70-1.30); EST Glomerular Filtration Rate 71 mL/min (>60); Est Glom Filt Rate - Afr Amer 86 mL/min (>60); Estimated Creatinine Clearance 57.77 ml/min; Glucose 113 mg/dL (74-106); Sodium Level 138 mmol/L (136-145); Troponin-I HS (w/2H Reflex) 6 pg/mL (3.0-78.0)
[2023-04-04 13:32] VITALS: BP 151/71; PULSE 77; RESP 19; O2SAT 96
[2023-04-04 14:39] LABS: Reflex Troponin-HS? (from REC) Y
== END 2023-04-04 13:37 | disposition home or self-care (01) ==
PROVIDERS: Emergency Provider Emergency Medicine; PCP Family Medicine; Visit Provider Emergency Medicine
DX: R07.89 Other chest pain (principal); J44.9 Chronic obstructive pulmonary disease, unspecified; N40.0 Benign prostatic hyperplasia without lower urinary tract symptoms
CPT/HCPCS: 71045; 80048; 84484; 85025; 93005; 99284; J7030; A4216

== ENCOUNTER → 2023-04-17 | Outpatient (CLI) | payer MEDICARE, SELFPAY ==
--- NOTE | 2023-04-18 05:55 | PFTCOMP_ITS ---
COMPLETE PULMONARY FUNCTION TEST INTERPRETATION Brief HPI: Patient is a 73-year-old male, currently under the care of myself, who presents to [facility] for complete pulmonary function tests secondary to diagnosis of COPD. Respiratory therapist reports good effort and reproducible results. Interpretation: Forced expiration spirometry shows a moderate large airways obstructive ventilatory defect with an FEV1 of 67% predicted. There is a significant bronchodilator response in FEV1 by strict ATS criteria. Spirograms are of good quality and plateau slowly, indicating slowly emptying areas of the lungs. The respiratory flow volume loop shows decreased expiratory flow rates at all lung volumes consistent with airway obstruction. Lung volumes by body plethysmography show a normal total lung capacity at 8.12 L, 114% predicted. FRC and RV are elevated out of proportion. Lung volume measurements are consistent with hyperinflation and air-trapping. Diffusion capacity by carbon monoxide is decreased at 48% predicted. The airway resistance is elevated. Compared to previous pulmonary function tests from November 2021, there has been some improvement noted in spirometry, but significant decline in DLCO. Impression: Partially reversible moderate large airways obstructive ventilatory defect, resulting in air trapping with hyperinflation, but a disproportionate reduction in diffusion capacity
== END | disposition home or self-care (01) ==
PROVIDERS: PCP Family Medicine; Referring Provider Internal Medicine Critical Care Medicine; Visit Provider Internal Medicine Critical Care Medicine
DX: J44.9 Chronic obstructive pulmonary disease, unspecified (principal)
CPT/HCPCS: 94060; 94726; 94729

== ENCOUNTER 2023-05-28 11:46 | Emergency (ER) | payer MEDICARE, SELFPAY ==
[2023-05-28 11:48] VITALS: BP 148/120; PULSE 72; RESP 18; TEMP 35.5; O2SAT 95; BMI 21.2
[2023-05-28 12:39] LABS: Absolute Lymphocyte Count 0.97 X10^3/uL (0.83-4.51); Absolute Neutrophil Count 2.6 X10^3/uL (2.0-7.7); Basophil# 0.02 X10^3/uL; Basophil% 0.5 % (0-1); Eosinophil# 0.03 X10^3/uL; Eosinophils% 0.7 % (0-5); Hematocrit 49.1 % (40-54); Hemoglobin 16.5 g/dL (13.0-16.5); Lymphocyte # 0.97 X10^3/ul (0.83-4.51); Lymphocyte % 23.5 % (19-41); Mean Corp Hgb Conc 33.6 g/dL (32-36); Mean Corpuscular Hgb 31.9 pg (27.0-32.0); Mean Corpuscular Volume 94.8 fL (80-94); Mean Platelet Vol. 10.6 fl (6.2-12.0); Monocyte# 0.52 X10^3/uL; Monocyte% 12.6 % (0-10); NRBC Flagged by Analyzer 0 % (0-5); Neutrophil # 2.58 X10^3/uL (2.7-7.7); Neutrophil % 62.5 % (47-70); Platelet Count 157 K/mm3 (150-450); RBC Distribution Width CV 12.6 % (11.6-14.6); RBC Distribution Width SD 43.8 fl (35.1-43.9); Red Blood Count 5.18 M/mm3 (4.6-6.2); White Blood Count 4.1 K/mm3 (4.4-11.0)
[2023-05-28 12:52] LABS: Prothrombin Time (Protime)PT. 12.6 SECONDS (11.7-14.9)
[2023-05-28 12:53] LABS: Partial Thromboplast Time 28.8 Seconds (24.1-36.2)
[2023-05-28 12:56] LABS: Anion Gap 6 (5-15); BUN 20 mg/dL (7-18); Calcium,Total 8.9 mg/dL (8.5-10.1); Chloride 106 mmol/L (98-107); Creatinine, Serum 1.25 mg/dL (0.70-1.30); EST Glomerular Filtration Rate 60 mL/min (>60); Est Glom Filt Rate - Afr Amer 73 mL/min (>60); Estimated Creatinine Clearance 51.96 ml/min; Glucose 104 mg/dL (74-106); Potassium 4.2 mmol/L (3.5-5.1); Sodium Level 139 mmol/L (136-145)
== END 2023-05-28 12:58 | disposition left against medical advice (07) ==
PROVIDERS: PCP Family Medicine
DX: R42 Dizziness and giddiness (principal); Z53.21 Procedure and treatment not carried out due to patient leaving prior to being seen by health care provider
CPT/HCPCS: 80048; 85025; 85610; 85730; A4216

== ENCOUNTER → 2023-06-08 | Outpatient (CLI) | payer MEDICARE, SELFPAY ==
--- NOTE | 2023-06-08 11:50 | RAD_ITS ---
STUDY: X-RAY CHEST REASON FOR EXAM: Male, 73 years old. COPD. TECHNIQUE: Frontal and lateral views of the chest on 3 images. COMPARISON: April 04, 2023 FINDINGS: Marked hyperinflation with flattening of the hemidiaphragms and hyperlucency, unchanged. There is no demonstrated pleural abnormality. Normal size heart. Normal mediastinum and winifred. Normal visualized pulmonary arteries. Aortic tortuosity with calcification unchanged. Normal visualized thoracic spine. Normal visualized ribs, clavicles, and shoulders. No abnormality of the visualized soft tissue structures of the upper abdomen. RAD/Chest PA and Lateral IMPRESSION: Stable findings of marked COPD. No acute abnormality. Electronically Signed: Dalton Qureshi MD at 13:29 EST ,
== END | disposition home or self-care (01) ==
LOC: MTRAD 11:47
PROVIDERS: PCP Family Medicine; Referring Provider Family Medicine; Visit Provider Family Medicine
DX: J44.1 Chronic obstructive pulmonary disease with (acute) exacerbation (principal)
CPT/HCPCS: 71046

== ENCOUNTER → 2023-08-28 | Outpatient (CLI) | payer MEDICARE, SELFPAY ==
[2023-08-28 15:24] LABS: Absolute Lymphocyte Count 0.82 X10^3/uL (0.83-4.51); Absolute Neutrophil Count 5.1 X10^3/uL (2.0-7.7); Basophil# 0.05 X10^3/uL; Basophil% 0.7 % (0-1); Eosinophil# 0.21 X10^3/uL; Eosinophils% 3.1 % (0-5); Hematocrit 42.4 % (40-54); Hemoglobin 14.1 g/dL (13.0-16.5); Lymphocyte # 0.82 X10^3/ul (0.83-4.51); Lymphocyte % 11.9 % (19-41); Mean Corp Hgb Conc 33.3 g/dL (32-36); Mean Corpuscular Hgb 30.4 pg (27.0-32.0); Mean Corpuscular Volume 91.4 fL (80-94); Monocyte# 0.65 X10^3/uL; Monocyte% 9.4 % (0-10); NRBC Flagged by Analyzer 0 % (0-5); Neutrophil # 5.12 X10^3/uL (2.7-7.7); Neutrophil % 74.5 % (47-70); Platelet Count 186 K/mm3 (150-450); RBC Distribution Width CV 12.8 % (11.6-14.6); RBC Distribution Width SD 42.5 fl (35.1-43.9); Red Blood Count 4.64 M/mm3 (4.6-6.2); White Blood Count 6.9 K/mm3 (4.4-11.0)
[2023-08-28 16:11] LABS: Vitamin B12 646 pg/mL (211-911)
[2023-08-28 16:20] LABS: ALB/GLOB Ratio 1.2 RATIO (0.9-2.4); AST(SGOT) 14 U/L (15-37); Alanine Aminotransfer ALT/SGPT 25 U/L (16-61); Albumin, Serum 3.6 g/dL (3.2-5.0); Alkaline Phosphatase 29 U/L (45-117); Anion Gap 7 (5-15); BUN 18 mg/dL (7-18); BUN/Creat Ratio 18.8 RATIO (10-20); Calcium,Total 8.8 mg/dL (8.5-10.1); Chloride 111 mmol/L (98-107); Cholesterol 208 mg/dL (200); Creatinine, Serum 0.96 mg/dL (0.70-1.30); EST Glomerular Filtration Rate 82 mL/min (>60); Est Glom Filt Rate - Afr Amer 100 mL/min (>60); Globulin 3.1 g/dL (2.2-4.2); Glucose 98 mg/dL (74-106); High Density Lipoprotein 63 mg/dL; Potassium 3.7 mmol/L (3.5-5.1); Protein, Total 6.7 g/dL (6.4-8.2); Sodium Level 145 mmol/L (136-145); T4 Free Direct 0.88 ng/dL (0.76-1.46); Thyroid Stim Hormone (TSH) 1.34 uIU/mL (0.358-3.74); Triglycerides 60 mg/dL; Very Low Density Lipoprotein 12 mg/dL (5-40)
== END | disposition home or self-care (01) ==
LOC: MTLAB 11:13
PROVIDERS: PCP Family Medicine; Referring Provider Family Medicine; Visit Provider Family Medicine
DX: R53.83 Other fatigue (principal)
CPT/HCPCS: 80053; 80061; 82607; 82746; 84439; 84443; 85025

== ENCOUNTER 2023-11-06 08:52 | Day surgery (SDC) | payer MEDICARE, SELFPAY ==
--- NOTE | 2023-11-05 | GASB_PTH ---
PATIENT: ESTHER BALL LOC: EN U#:[id number] AGE/SX: 73/M ROOM: RE11/06/[address]: Dr. Sundeep Holland MD : 1950 BED: DIS: 11/06/2023 SPEC #: [id number] RECD: 11/06/23 13:12 STATUS: LATESHA EVELINE #: [id number] FRANK: 11/05/23 00:[address]: Sundeep Holland DEPT: SURGICAL PATHOLOGY RECD BY: Mark Payton ENTERED: 11/06/23 13:13 SP TYPE: Gastric Bx OTHR DR: Dr. Aldo Ball MD Tissues: A - Duodenum, NOS B - Gastric mucous membrane C - Esophageal mucous membrane D - Esophageal mucous membrane Procedures: Surgery Specimen Level IV HEADER OPERATION: EGD biopsy PRE-OP DIAGNOSIS: GERD TISSUE SUBMITTED: A- Duodenum biopsy, B- Antrum biopsy, C- Distal esophagus biopsy, D- Mid esophagus biopsy MICROSCOPIC DIAGNOSIS A. Duodenum, biopsy: Minimal non-specific chronic inflammation. B. Gastric antrum, biopsy: Mild chronic gastritis. Focal intestinal metaplasia. No evidence of dysplasia. See comment. C. Distal esophagus, biopsy: Gastroesophageal junctional mucosa with mild chronic inflammation. Focal changes of reflux. Focal goblet cell metaplasia. No evidence of dysplasia. See comment. D. Mid esophagus, biopsy: No pathologic change. / 11/07/2023 COMMENT B. The results of immunohistochemistry for Helicobacter pylori will be reported separately ([id number]). Alcian blue/PAS stain with matched control supports the above diagnosis. C. Alcian blue/PAS stain with matched control supports the above diagnosis. MICROSCOPIC DESCRIPTION Slides are reviewed. GROSS DESCRIPTION A. Received in fixative is one container labeled with the patient's name and designated Duodenum biopsy. The specimen consists of one irregular fragment of light perry soft tissue that measures 0.3 x 0.3 x 0.1 cm. The specimen is totally submitted in one cassette. B. Received in fixative is one container labeled with the patient's name and designated Antrum biopsy. The specimen consists of two irregular fragments of light perry soft tissue that in aggregate measure 0.8 x 0.3 x 0.1 cm. The specimen is totally submitted in one cassette. C. Received in fixative is one container labeled with the patient's name and designated Distal esophagus biopsy. The specimen consists of multiple irregular fragments of light perry soft tissue that in aggregate measure 1.0 x 0.6 x 0.1 cm. The specimen is totally submitted in one cassette. D. Received in fixative is one container labeled with the patient's name and designated Mid esophagus biopsy. The specimen consists of one irregular fragment of light perry soft tissue that measures 0.4 x 0.3 x 0.1 cm. The specimen is totally submitted in one cassette. [place]/ 11/07/23 TC:3 CPT:50281b9 ,[id number]
[2023-11-06] VITALS (9 sets, daily range): BP systolic 79–151; BP diastolic 47–72; PULSE 64–90; RESP 16; TEMP 36.3–36.6; O2SAT 94–99; BMI 21.2
--- NOTE | 2023-11-06 09:23 | PCM.HP.BLA ---
History and Physical Date of Admission: 11/06/23 Visit Reasons: Over due for 3YR EGD LAST SEEN 2018 abdominal pain Chief Complaint: Discuss EGD Work Adjustment Instructor Required: No Is patient in pain?: No Allergies No Known Allergies Allergy (Verified 10/22/23 13:42) Medications multivitamin 1 cap PO DAILY 11/12/18 [History Confirmed 10/22/23] amlodipine 5 mg tablet 2.5 mg PO DAILY 03/27/23 [History Confirmed 10/22/23] fluticasone fur. 200 mcg-umeclid 62.5 mcg-vilant 25 mcg inhalat.powder (Trelegy Ellipta) 1 inh inhalation DAILY #60 ea 03/27/23 [Rx Confirmed 10/22/23] finasteride 5 mg tablet mg 04/04/23 [History Confirmed 10/22/23] albuterol sulfate 90 mcg/actuation aerosol inhaler 2 puff inhalation Q6H PRN shortness of breath or wheezing #8.5 grams 10/17/23 [Rx Confirmed 10/22/23] PFSH Medical History (Updated 10/22/23 @ 13:39 by Lisset Baca) Asthma-COPD overlap syndrome Recinos's esophagus BPH (benign prostatic hyperplasia) COPD (chronic obstructive pulmonary disease) Epigastric abdominal pain GERD (gastroesophageal reflux disease) Hiatal hernia Pulmonary fibrosis Rectal abscess Thrombocytopenia Unintentional weight loss Surgical History (Updated 10/22/23 @ 13:40 by Lisset Baca) H/O vein stripping History of cholecystectomy History of cystoscopy History of esophagogastroduodenoscopy (EGD) History of tonsillectomy Family History Mother HypertensionFather COPD (chronic obstructive pulmonary disease) Social History Smoking Status: Never smoker Electronic Cigarette Use: not used second hand exposure: No alcohol intake: never substance use type: former substance user Date of last use: Used Marijuana HPI HPI HPI: 73-year-old gentleman referred by Dr. Aldo Ball for surgical follow-up regarding Recinos's esophagus and written compromise surgical consult recommendations will return to him. I have previously assisted the patient on December 13, 2017 with an esophagogastroduodenoscopy and biopsy. Recinos's esophagus and hiatal hernia and mild antral gastritis was identified. Pathology demonstrated findings suggestive gastroesophageal reflux disease though at that time intestinal metaplasia was not identified though it had been detected prior. H. pylori was negative. The patient presents today. He has multiple questions. He claims that he has gastritis pain that he can feel the food exiting his stomach. He provides me with [id number] photos of 2018. He states that he continues to have gastritis pain. He is wonder whether its ulcerative pain. He denies current tobacco use. ROS General General: Yes fatigue; No weight change, appetite, colon cancer, breast cancer or weakness HEENT HEENT: No difficulty swallowing, eye injury, eye surgery, swollen glands or hoarseness Endo Endocrine: No thyroid disease, diabetes mellitus, thyroid cancer, Hair loss, heat intolerance or cold intolerance Skin Skin: No rash or changing moles Breast Breast: No left breast lump, right breast lump, nipple discharge, breast pain, abnormal mammogram, abnormal US or breast enlargement Musc Musculoskeletal: No back problems, arthritis, rheumatoid arthritis, gout or joint pain Cardio Cardiovascular: Yes high blood pressure; No murmur, pacemaker, heart disease, atrial fibrillation, heart attack, heart stent, palpitations, shortness of breat with exertion or chest pain Psych Psychiatric: No depression, anxiety or hearing voices Resp Respiratory: Yes shortness of breath, No sleep apnea, No cough, Yes COPD, No asthma, No emphysema and No wheezing Gastro Gastrointestinal: Yes abdominal pain, No nausea or vomiting, No diarrhea, No constipation, No blood in stool, No acid reflux, No hemorrhoids, No ulcers, No gallbladder problem and No black,tarry stools Seb Hematologic: No blood thinners, No blood disorders, No bleeding, No anemia and No blood clots Neuro Neurologic: No system reviewed and no additional complaints, except as documented, No as per HPI, No abnormal gait, No abnormal hearing, No abnormal movements, No abnormal speech, No behavioral changes, No burning sensations, No confusion, No convulsions, No disequilibrium, No dizziness, No localized weakness, No frequent falls, No headache(s), No lack of coordination, No loss of vision, No memory loss, No numbness, No other visual disturbances, No radicular pain, No restless legs, No sensory deficit, No syncope, No tingling, No tremor(s), No weakness and No other Exam Const General: comfortable and no acute distress Nutritional Appearance: average body habitus Orientation: alert, awake and oriented x3 HENMT Head: normal to inspection Eyes General: appearance normal, both eyes and all related structures Neck Neck: normal visual inspection Chest Other: Increased anterior posterior diameter Resp Effort & Inspection: normal respiratory effort Auscultation: clear to auscultation bilaterally Other: Intermittent diffuse dry cough Cardio Rate: regular rate Rhythm: regular rhythm GI Palpation: soft and no hepatosplenomegaly Musc Cervical Spine: normal cervical lordosis Skin General: no rashes or lesions noted Neuro General: patient alert and patient awake Psych Mood: anxious mood Assessment and Plan Assessment and Plan (1) GERD (gastroesophageal reflux disease): Status: Acute Qualifiers: Esophagitis bleeding: without hemorrhage Esophagitis presence: with esophagitis Qualified Code(s): K21.00 - Gastro-esophageal reflux disease with esophagitis, without bleeding Plan: I tried to assist this patient with the multiple questions that he has. Although the CT scans have not found hiatal hernia and this seems to be noted on my upper scope as did what appeared to be Recinos's even though pathology did not confirm. I do strongly recommend to him that we repeat an esophagogastroduodenoscopy looking for possible gastric outlet problems looking for H. pylori or ongoing gastritis looking for changes of reflux esophagitis plus or minus Recinos's. Looking to better define the hiatal hernia. The patient is requesting color photographs be provided to the completion of the procedure. He has had an opportunity to ask and have questions answered. We will schedule and proceed at his discretion. Copy: Dr. Aldo Holland M.D., F.A.C.S. I have examined the patient and the H&P has been reviewed. There are no clinical changes since date of exam. Sundeep Holland M.D., F.A.C.S.
[2023-11-06] MEDS: Lactated Ringers 1,000 ML 15 ML IV (09:35)
--- NOTE | 2023-11-06 10:00 | IMM_PTH ---
PATIENT: ESTHER BALL LOC: EN U#:[id number] AGE/SX: 73/M ROOM: RE11/06/[address]: Dr. Sundeep Holland MD : 1950 BED: DIS: 11/06/2023 SPEC #: [id number] RECD: 11/07/23 09:26 STATUS: LATESHA REQ #: [id number] FRANK: 11/06/23 10:[address]: Sundeep Holland DEPT: IMMUNOHISTOCHEMISTRY RECD BY: Fahad Maza ENTERED: 11/07/23 09:26 SP TYPE: IMMUNO OTHR DR: Dr. Aldo Ball MD Tissues: B - Stomach, NOS Procedures: H Pylori (initial) KI-67 (add) P53 (add) PHYSICIAN & INSTITUTION [place] [id number] SPECIMEN INFORMATION: Tissue Source: Antrum biopsy Clinical Info: GERD Specimen Number: [id number] CPT code: 83913 METHODOLOGY: Deparaffinized sections of prefer/formalin-fixed tissue or PAP/DQ stained slides are incubated with monoclonal/polyclonal antibodies/oligonucleotide probes. Localization is made via biotin free immunoperoxidase method. Appropriate controls are performed and reacted as expected. Results on target cell population are indicated in the following table: RESULTS: ANTIBODY / CLONE RESULT Block B H Pylori (polyclonal) negative P53 (DO-7) negative, null pattern Ki-67 (30-9) positive These tests were developed and their performance characteristics determined by [facility]. They may not have been cleared or approved by the U.S. Food and Drug Administration. The FDA has determined that such clearance or approval is not necessary. The above immunohistochemical/dualISH markers are ordered and reviewed by the Pathologist. INTERPRETATION: Gastric antrum, biopsy: Negative for Helicobacter pylori organisms. No evidence of dysplasia. HUGO/ 11/08/2023
--- NOTE | 2023-11-06 11:00 | OP.CCLET_ITS ---
11/06/2023 Aldo Ball [address] [place] [address] Re : Upper GI endoscopy procedure for Vivienne Ball Dear Dr. Ball This procedure was performed on Monday, November 06, 2023. My impressions and recommendations are as follows: Impressions : - Normal proximal esophagus. - Esophagitis with no bleeding. Biopsied. - Reflux esophagitis with no bleeding. Rule out Recinos's esophagus. Biopsied. - Small hiatal hernia. - Chronic gastritis. Biopsied. - Erythematous duodenopathy. Biopsied. Recommendations : - Discharge patient to home. - Resume previous diet. - Continue present medications. - Telephone my office for pathology results in 1 week. Findings suggest gastritis some mild reflux esophagitis. Rule out Recinos's. Will await pathology and provide additional recommendations. My findings are described in the full procedure note, which is enclosed. If I can be of further assistance, please feel free to contact me at Doctor phone number(s): Work: . Sincerely, Sundeep Holland MD 11/06/2023 10:59:42 AM This report has been signed electronically.
--- NOTE | 2023-11-06 11:00 | OP.EGD_ITS ---
Patient Name: Vivienne Ball Procedure Date: 11/06/2023 10:32 AM Date of : 1950 Age: 73 Procedure: Upper GI endoscopy Indications: Dyspepsia Providers: Sundeep Holland MD Referring MD: Aldo Ball Medicines: See the Anesthesia note for documentation of the administered medications Complications: No immediate complications. Procedure: Pre-Anesthesia Assessment: - Prior to the procedure, a History and Physical was performed, and patient medications and allergies were reviewed. The patient's tolerance of previous anesthesia was also reviewed. The risks and benefits of the procedure and the sedation options and risks were discussed with the patient. All questions were answered, and informed consent was obtained. Prior Anticoagulants: The patient has taken no anticoagulant or antiplatelet agents. ASA Grade Assessment: II - A patient with mild systemic disease. After reviewing the risks and benefits, the patient was deemed in satisfactory condition to undergo the procedure. After obtaining informed consent, the endoscope was passed under direct vision. Throughout the procedure, the patient's blood pressure, pulse, and oxygen saturations were monitored continuously. The Endoscope was introduced through the mouth, and advanced to the second part of duodenum. The upper GI endoscopy was accomplished without difficulty. The patient tolerated the procedure well. Scope In: 10:40:51 AM Scope Out: 10:52:15 AM Total Procedure Duration Time 0 hours 11 minutes 24 seconds Findings: The proximal esophagus was normal. Esophagitis with no bleeding was found 18 cm from the incisors. Biopsies were taken with a cold forceps for histology. Esophagitis with no bleeding was found 44 cm from the incisors. Biopsies were taken with a cold forceps for histology. A small hiatal hernia was present. Diffuse mild inflammation characterized by erythema was found in the gastric antrum. Biopsies were taken with a cold forceps for histology. Diffuse mildly erythematous mucosa without active bleeding and with no stigmata of bleeding was found in the duodenal bulb. Biopsies were taken with a cold forceps for histology. Impression: - Normal proximal esophagus. - Esophagitis with no bleeding. Biopsied. - Reflux esophagitis with no bleeding. Rule out Recinos's esophagus. Biopsied. - Small hiatal hernia. - Chronic gastritis. Biopsied. - Erythematous duodenopathy. Biopsied. Recommendation: - Discharge patient to home. - Resume previous diet. - Continue present medications. - Telephone my office for pathology results in 1 week. Findings suggest gastritis some mild reflux esophagitis. Rule out Recinos's. Will await pathology and provide additional recommendations. Procedure Code(s): --- Professional --- 34958, Esophagogastroduodenoscopy, flexible, transoral; with biopsy, single or multiple Diagnosis Code(s): --- Professional --- K21.00, Gastro-esophageal reflux disease with esophagitis, without bleeding K44.9, Diaphragmatic hernia without obstruction or gangrene K29.50, Unspecified chronic gastritis without bleeding K31.89, Other diseases of stomach and duodenum R10.13, Epigastric pain CPT copyright 2021 [employer]. All rights reserved. The codes documented in this report are preliminary and upon remote coders review may be revised to meet current compliance requirements. Sundeep Holland MD 11/06/2023 10:59:42 AM This report has been signed electronically. Number of Addenda: 0 Note Initiated On: 11/06/2023 10:32 AM
== END 2023-11-06 12:22 | disposition home or self-care (01) ==
LOC: EN 08:53 → AC 08:53
PROVIDERS: PCP Family Medicine; Referring Provider Family Medicine; Visit Provider Surgery
PROC: 0DJ08ZZ Inspection of Upper Intestinal Tract, Via Natural or Artificial Opening Endoscopic (ICD-10-PCS; CPT 43235; principal; 2023-11-06 09:55)
DX: K22.70 Barrett's esophagus without dysplasia (principal); J44.9 Chronic obstructive pulmonary disease, unspecified; K44.9 Diaphragmatic hernia without obstruction or gangrene; K29.50 Unspecified chronic gastritis without bleeding; K21.00 Gastro-esophageal reflux disease with esophagitis, without bleeding; I10 Essential (primary) hypertension; K29.80 Duodenitis without bleeding; K31.A11 Gastric intestinal metaplasia without dysplasia, involving the antrum; Z79.899 Other long term (current) drug therapy; Z79.51 Long term (current) use of inhaled steroids
CPT/HCPCS: 43239; 88305; 88341; 88342; J7120; J2405

== ENCOUNTER → 2024-06-05 | Outpatient (CLI) | payer MEDICARE, SELFPAY ==
[2024-06-05 17:42] LABS: Hematocrit 41.9 % (40-54); Hemoglobin 14.1 g/dL (13.0-16.5); Mean Corp Hgb Conc 33.7 g/dL (32-36); Mean Corpuscular Hgb 31.6 pg (27.0-32.0); Mean Corpuscular Volume 93.9 fL (80-94); Mean Platelet Vol. 10.8 fl (6.2-12.0); Platelet Count 196 K/mm3 (150-450); RBC Distribution Width CV 12.5 % (11.6-14.6); Red Blood Count 4.46 M/mm3 (4.6-6.2); White Blood Count 7.6 K/mm3 (4.4-11.0)
[2024-06-05 17:59] LABS: Microalbumin,Random Urine 6.4 mg/L (NO RANGE EST.); Microalbumin:Creatinine Ratio 6.4 mg/g CRE (<30 mg/g CRE)
[2024-06-05 18:19] LABS: ALB/GLOB Ratio 1.2 RATIO (0.9-2.4); AST(SGOT) 11 U/L (15-37); Alanine Aminotransfer ALT/SGPT 20 U/L (16-61); Albumin, Serum 3.5 g/dL (3.2-5.0); Alkaline Phosphatase 35 U/L (45-117); Anion Gap 3 (5-15); BUN 20 mg/dL (7-18); Calcium,Total 9.2 mg/dL (8.5-10.1); Chloride 110 mmol/L (98-107); Creatinine, Serum 1.05 mg/dL (0.70-1.30); EST Glomerular Filtration Rate 74 mL/min (>60); Est Glom Filt Rate - Afr Amer 89 mL/min (>60); Glucose 86 mg/dL (74-106); Potassium 3.6 mmol/L (3.5-5.1); Protein, Total 6.5 g/dL (6.4-8.2); Sodium Level 143 mmol/L (136-145)
== END | disposition home or self-care (01) ==
LOC: MTLAB 14:07
PROVIDERS: PCP Family Medicine; Referring Provider Family Medicine; Visit Provider Family Medicine
DX: I10 Essential (primary) hypertension (principal); J44.9 Chronic obstructive pulmonary disease, unspecified
CPT/HCPCS: 36415; 80053; 82043; 82570; 85027

== ENCOUNTER → 2024-12-08 | Outpatient (CLI) | payer MEDICARE, SELFPAY ==
[2024-12-08 12:42] LABS: PSA,Total - Annual Screen 0.92 ng/mL (0.02-4.00)
--- OUTSIDE RECORDS SUMMARY | 2024-12-08 22:44 | XMS RPT_ITS | CCD ---
Author Organization [facility] CliniSyoh Care Team Providers Care Pewter Finisher Name Role Phone Dr. Aldo Ball Primary Care Provider Dr. Uvaldo Mcintyre Attending Provider Dr. Uvaldo Micntyre Referring Provider Dr. Aldo Ball Primary Care Provider [phone] Dr. Aldo Ball Referring Provider Jose A SOFTWARE APPLICATIONS ENGINEER, SOFTWARE APPLICATIONS ENGINEER-C Taylor Attending Provider Dr. Aldo Ball Primary Care Provider Dr. Aldo Ball Referring Provider Dr. Uvlado Mcintyre Attending Provider Dr. Uvaldo Mcintyre Referring Provider Dr. Uvaldo Mcintyre Other Provider Dr. Aldo Ball Primary Care Provider Dr. Aldo Ball Referring Provider Dr. Uvaldo Mcintyre Attending Provider Dr. Uvaldo Mcintyre Referring Provider Dr. Uvaldo Mcintyre Other Provider Aldo Ball Primary Care Unavailable Sundeep Holland Attending Unavailable Quinn, Aldo Primary Care Unavailable Sundeep Holland Attending Unavailable Ball, Aldo Referring Unavailable Ball, Aldo Primary Care Unavailable Ball Aldo Attending Unavailable Ball, Aldo Referring Unavailable Ball, Aldo Attending Unavailable Ball, Aldo Referring Unavailable Ball, Aldo Primary Care Unavailable Ball OLS, Aldo Referring Unavailable Ball, Aldo Attending Unavailable Ball, Aldo Primary Care Unavailable Ball, Aldo Primary Care Unavailable Sundeep Holland Attending Unavailable Ball, Aldo Referring Unavailable Sundeep Holland Attending Unavailable Aldo Ball Referring Unavailable Aldo Ball Primary Care Unavailable Medications Current Medications Medication Drug Class(es) Dates Sig (Normalized) Sig (Original) [id number] 200 actuat albuterol 0.09 mg/actuat metered dose inhaler (13 sources) beta2-Adrenergic Agonist Start: 01-02-2022 End: 04-05-2022 take 1 puff(s) by inhalation every six hours Albuterol Sulfate Active 2 PUFF INHALATION EVERY 6 HOURS 8.5 April 05, 2022 12:43pm amLODIPine 5 mg oral tablet (4 sources) Dihydropyridine Calcium Channel Shawna Start: 03-27-2023 take 2.5 mg by mouth once daily Amlodipine Active 2.5 MG PO DAILY March 26, 2023 11:00pm finasteride 5 mg oral tablet (4 sources) 5-alpha Reductase Inhibitor Start: 04-04-2023 Finasteride Active MG April 03, 2023 11:00pm Fluticasone-Umecli din-Vilanter (12 sources) Start: 03-27-2023 Fluticasone-Umecl idin-Vilanter (Trelegy Ellipta) 200-62.5-25 mcg blister with device Active 1 INH INHALATION DAILY March 27, 2023 10:47am Start: 03-27-2023 Fluticasone-Um eclidin-Vilanter (Trelegy Ellipta) 200-62.5-25 mcg blister with device Active 1 INH INHALATION DAILY March 27, 2023 11:47am Start: 03-27-2023 End: 03-27-2023 Aywmugwgcxg-Hlyithegg-Wpooxj er (Trelegy Ellipta) 200-62.5-25 mcg blister with device Discontinued 1 INH INHALATION DAILY March 27, 2023 8:55am March 27, 2023 10:48am Start: 03-27-2023 End: 03-27-2023 Oxcbxbiieqg-Tjjjgxlmw-Quavey er (Trelegy Ellipta) 200-62.5-25 mcg blister with device Discontinued 1 INH INHALATION DAILY March 27, 2023 9:55am March 27, 2023 11:48am Start: 03-27-2023 End: 03-27-2023 Symziawmviv-Rscdjazep-Hllahd er (Trelegy Ellipta) 200-62.5-25 mcg blister with device Discontinued 1 INH INHALATION DAILY March 26, 2023 11:00pm March 27, 2023 9:00am Start: 03-27-2023 End: 03-27-2023 Jtgfjwheaeq-Bdqdlvpcs-Rgtwuf er (Trelegy Ellipta) 200-62.5-25 mcg blister with device Discontinued 1 INH INHALATION DAILY March 27, 2023 12:00am March 27, 2023 10:00am multivitamin capsule (11 sources) Start: 11-12-2018 take 1 capsule by mouth once daily multivitamin capsule Active 1 CAP PO DAILY November 12, 2018 8:12am Start: 11-12-2018 take 1 capsule by mo uth once daily multivitamin capsule Active 1 CAP PO DAILY November 11, 2018 11:00pm Start: 11-12-2018 take 1 capsule by mo uth once daily multivitamin capsule Active 1 CAP PO DAILY November 12, 2018 12:00am Completed/Discontinued Medications Medication Drug Class(es) Dates Sig (Normalized) Sig (Original) Budesonide-Formote rol (11 sources) Corticosteroid, beta2-Adrenergic Agonist Start: 11-23-2022 End: 03-27-2023 take 1 puff(s) by mouth twice daily Budesonide-Formoter ol (Symbicort) 160-4.5 mcg/actuation HFA aerosol inhaler Discontinued 2 PUFF INHALATION TWICE A DAY November 22, 2022 11:00pm March 27, 2023 8:39am administer with spacer, rinse mouth after each use Start: 11-23-2022 End: 03-27-2023 take 1 puff(s) by mouth twice daily Budesonide-Formoterol (Symbicort) 160-4.5 mcg/actuation HFA aerosol inhaler Discontinued 2 PUFF INHALATION TWICE A DAY November 23, 2022 12:00am March 27, 2023 9:39am administer with spacer, rinse mouth after each use Start: 11-23-2022 take 1 puff(s) by mo uth twice daily Budesonide-Formoterol (Symbicort) 160-4.5 mcg/actuation HFA aerosol inhaler Active 2 PUFF INHALATION TWICE A DAY November 23, 2022 12:00am administer with spacer, rinse mouth after each use Start: 04-05-2022 End: 11-23-2022 take 1 puff(s) by mouth twice daily Budesonide-Formoterol (Symbicort) 160-4.5 mcg/actuation HFA aerosol inhaler Discontinued 2 PUFF INHALATION TWICE A DAY April 04, 2022 11:00pm November 23, 2022 8:46am administer with spacer, rinse mouth after each use Start: 04-05-2022 End: 11-23-2022 take 1 puff(s) by mouth twice daily Budesonide-Formoterol (Symbicort) 160-4.5 mcg/actuation HFA aerosol inhaler Discontinued 2 PUFF INHALATION TWICE A DAY April 05, 2022 12:00am November 23, 2022 9:46am administer with spacer, rinse mouth after each use Start: 04-05-2022 take 1 puff(s) by mo ut twice daily Budesonide-Formoterol (Symbicort) 160-4.5 mcg/actuation HFA aerosol inhaler Active 2 PUFF INHALATION TWICE A DAY April 05, 2022 12:00am administer with spacer, rinse mouth after each use esomeprazole 40 mg delayed release oral capsule (11 sources) Proton Pump Inhibitor Start: 12-13-2017 End: 11-12-2018 take 40 mg by mouth once daily Esomeprazole Magnesium Discontinued 40 MG PO DAILY December 12, 2017 11:00pm November 12, 2018 7:12am Fluticasone-Umeclidi n-Vilanter (13 sources) Anticholinergic, Corticosteroid, beta2-Adrenergic Agonist Start: 04-05-2022 End: 04-05-2022 Fluticasone-Umeclid in-Vilanter (Trelegy Ellipta) 100-62.5-25 mcg blister with device Discontinued 1 INH INHALATION DAILY 60 April 05, 2022 12:43pm April 05, 2022 12:47pm Start: 04-05-2022 End: 04-05-2022 Xrfpecqkoli-Ietxqpaos-Sksiof er (Trelegy Ellipta) 100-62.5-25 mcg blister with device Discontinued 1 INH INHALATION DAILY 60 April 05, 2022 1:43pm April 05, 2022 1:47pm Start: 01-02-2022 End: 04-05-2022 Oeboihdtkzo-Fuhpeehiy-Xapeov er (Trelegy Ellipta) 100-62.5-25 mcg blister with device Discontinued 1 INH INHALATION DAILY 60 January 01, 2022 11:00pm April 05, 2022 12:43pm Start: 01-02-2022 End: 04-05-2022 Fbzgkzhfede-Wumzlaiha-Pciswc er (Trelegy Ellipta) 100-62.5-25 mcg blister with device Discontinued 1 INH INHALATION DAILY 60 January 02, 2022 12:00am April 05, 2022 1:43pm Start: 01-02-2022 Fluticasone-Um eclidin-Vilanter (Trelegy Ellipta) 100-62.5-25 mcg blister with device Active 1 INH INHALATION DAILY 60 January 02, 2022 12:00am miSOPROStol 0.2 mg oral tablet (11 sources) Prostaglandin E1 Analog Start: 11-12-2018 End: 11-23-2022 take 200 ug by mouth at bedtime Misoprostol Discontinued 200 MCG PO after meals and at bedtime November 11, 2018 11:00pm November 23, 2022 8:46am Problems Active Problems Problem Classification Problem Date Documented Date Episodic/Chronic Chronic obstructive pulmonary disease and bronchiectasis (12 sources) Asthma-chronic obstructive pulmonary disease overlap syndrome; Translations: [Chronic obstructive pulmonary disease, unspecified] Chronic Esophageal disorders (2 sources) Esophageal disorders; Translations: [Gastro-esophageal reflux disease with esophagitis, without bleeding] Onset: 11-15-2023 Essential hypertension (1 source) Essential (primary) hypertension; Translations: [Essential (primary) hypertension] Onset: 07-15-2024 Chronic Gastritis and duodenitis (1 source) Unspecified chronic gastritis without bleeding; Translations: [Unspecified chronic gastritis without bleeding] Onset: 11-15-2023 Chronic Nonspecific chest pain (4 sources) Chest wall pain; Translations: [Other chest pain] 04-12-2023 Episodic Other nutritional; endocrine; and metabolic disorders (7 sources) Unintentional weight loss; Translations: [Abnormal weight loss] 01-02-2022 Episodic Other nutritional; endocrine; and metabolic disorders (1 source) Abnormal weight loss; Translations: [Loss of weight] Episodic Other screening for suspected conditions (not mental disorders or infectious disease) (11 sources) Electrocardiogram abnormal; Translations: [Abnormal electrocardiogram [ECG] [EKG]] 08-31-2020 Episodic Past or Other Problems Problem Classification Problem Date Documented Date Episodic/Chronic Abdominal hernia (1 source) Diaphragmatic hernia without obstruction or gangrene; Translations: [Diaphragmatic hernia without obstruction or gangrene] Onset: 11-15-2023 Episodic Abdominal pain (12 sources) Epigastric pain; Translations: [Epigastric pain] Onset: 11-15-2023 08-31-2020 Episodic Malaise and fatigue (1 source) Other fatigue; Translations: [Other fatigue] Onset: 09-01-2023 Episodic Other disorders of stomach and duodenum (1 source) Other diseases of stomach and duodenum; Translations: [Other diseases of stomach and duodenum] Onset: 11-15-2023 Episodic Results Test Name Value Interpretation Reference Range Facility CBC-Complete Blood Cnt No Di ffon 06-05-2024 Erythrocyte distribution width (RBC) [Ratio] 12.5 % Normal 11.6-14.6 [facility] Comment on above: Order Comment: Order Date: 06/05/24 Order Info: [id number] - CBC Performed By: #### L 502.0250, L500.4050, L100.0500 #### [facility] [address] [facility] [address] Hematocrit (Bld) [Volume fraction] 41.9 % Normal 40-54 [facility] Comment on above: Order Comment: Order Date: 06/05/24 Order Info: [id number] - CBC Performed By: #### L 502.0250, L500.4050, L100.0500 #### [facility] [address] [place], [address] Hemoglobin (Bld) [Mass/Vol] 14.1 g/dL Normal 13.0-16.5 [facility] Comment on above: Order Comment: Order Date: 06/05/24 Order Info: [id number] - CBC Performed By: #### L 502.0250, L500.4050, L100.0500 #### [facility] [address] [place], [address] MCH (RBC) [Entitic mass] 31.6 pg Normal 27.0-32.0 [facility] Comment on above: Order Comment: Order Date: 06/05/24 Order Info: [id number] - CBC Performed By: #### L 502.0250, L500.4050, L100.0500 #### [facility] [address] [place], [address] MCHC (RBC) [Mass/Vol] 33.7 g/dL Normal 32-36 [facility] Comment on above: Order Comment: Order Date: 06/05/24 Order Info: [id number] - CBC Performed By: #### L 502.0250, L500.4050, L100.0500 #### [facility] [address] [place], [address] MCV (RBC) [Entitic vol] 93.9 fL Normal 80-94 [facility] Comment on above: Order Comment: Order Date: 06/05/24 Order Info: [id number] - CBC Performed By: #### L 502.0250, L500.4050, L100.0500 #### [facility] [address] [place], [address] Platelet mean volume (Bld) [Entitic vol] 10.8 fL Normal 6.2-12.0 [facility] Comment on above: Order Comment: Order Date: 06/05/24 Order Info: [id number] - CBC Performed By: #### L 502.0250, L500.4050, L100.0500 #### [facility] [address] [place], [address] Platelets (Bld) [#/Vol] 196 10*3/uL Normal 150-450 [facility] Comment on above: Order Comment: Order Date: 06/05/24 Order Info: [id number] - CBC Performed By: #### L 502.0250, L500.4050, L100.0500 #### [facility] [address] [place], [address] RBC (Bld) [#/Vol] 4.46 10*6/uL Low 4.6-6.[address] [facility] Comment on above: Order Comment: Order Date: 06/05/24 Order Info: [id number] - CBC Performed By: #### L 502.0250, L500.4050, L100.0500 #### [facility] [address] [place], [address] RDW SD 43.0 fl Normal 35.1-43.9 [facility] Comment on above: Order Comment: Order Date: 06/05/24 Order Info: [id number] - CBC Performed By: #### L 502.0250, L500.4050, L100.0500 #### [facility] [address] [place], [address] WBC (Bld) [#/Vol] 7.6 10*3/uL Normal 4.4-11.0 [facility] Comment on above: Order Comment: Order Date: 06/05/24 Order Info: [id number] - CBC Performed By: #### L 502.0250, L500.4050, L100.0500 #### [facility] [address] [place], [address] Comprehensive Metabolic Prof nmon 06-05-2024 Albumin [Mass/Vol] 3.5 g/dL Normal 3.2-5.0 [facility] Comment on above: Order Comment: Order Date: 06/05/24 Order Info: [id number] - CMP Performed By: #### L 502.0250, L500.4050, L100.0500 #### [facility] [address] [place], [address] Albumin/Globulin [Mass ratio] 1.2 {ratio} Normal 0.9-2.4 [facility] Comment on above: Order Comment: Order Date: 06/05/24 Order Info: [id number] - CMP Performed By: #### L 502.0250, L500.4050, L100.0500 #### [facility] [address] [place], [address] ALK P 35 U/L Low 45-117 [facility] Comment on above: Order Comment: Order Date: 06/05/24 Order Info: [id number] - CMP Performed By: #### L 502.0250, L500.4050, L100.0500 #### [facility] [address] [place], [address] ALT [Catalytic activity/Vol] 20 U/L Normal 16-61 [facility] Comment on above: Order Comment: Order Date: 06/05/24 Order Info: [id number] - CMP Performed By: #### L 502.0250, L500.4050, L100.0500 #### [facility] [address] [place], [address] AST [Catalytic activity/Vol] 11 U/L Low 15-37 [facility] Comment on above: Order Comment: Order Date: 06/05/24 Order Info: [id number] - CMP Performed By: #### L 502.0250, L500.4050, L100.0500 #### [facility] [address] [place], [address] Bilirubin [Mass/Vol] 0.50 mg/dL Normal 0.20-1.00 [facility] Comment on above: Order Comment: Order Date: 06/05/24 Order Info: [id number] - CMP Result Comment: For patients on eltrombopag therapy, use of Dimension Mcalester TBIL is not recommended. Performed By: #### L 502.0250, L500.4050, L100.0500 #### [facility] [address] [place], [address] BUN/CRE 19.0 RATIO Normal 10-20 [facility] Comment on above: Order Comment: Order Date: 06/05/24 Order Info: [id number] - CMP Performed By: #### L 502.0250, L500.4050, L100.0500 #### [facility] [address] [place], [address] CA,Total 9.2 mg/dL Normal 8.5-10.1 [facility] Comment on above: Order Comment: Order Date: 06/05/24 Order Info: [id number] - CMP Performed By: #### L 502.0250, L500.4050, L100.0500 #### [facility] [address] [place], [address] Chloride [Moles/Vol] 110 mmol/L High 98-107 [facility] Comment on above: Order Comment: Order Date: 06/05/24 Order Info: [id number] - CMP Performed By: #### L 502.0250, L500.4050, L100.0500 #### [facility] [address] [place], [address] CO2 [Moles/Vol] 30.0 mmol/L Normal 21.0-32.0 [facility] Comment on above: Order Comment: Order Date: 06/05/24 Order Info: [id number] - CMP Performed By: #### L 502.0250, L500.4050, L100.0500 #### [facility] [address] [place], [address] Creatinine [Mass/Vol] 1.05 mg/dL Normal 0.70-1.30 [facility] Comment on above: Order Comment: Order Date: 06/05/24 Order Info: [id number] - CMP Result Comment: The validity of the calculated GFR GFRAA in patients over 70 years has not been determined. Clinical correlation is essential. Performed By: #### L 502.0250, L500.4050, L100.0500 #### [facility] [address] [place], [address] EST GFR - AA 89 mL/min Normal >60 [facility] Comment on above: Order Comment: Order Date: 06/05/24 Order Info: [id number] - CMP Result Comment: Afri can [place] GFR Calc Performed By: #### L 502.0250, L500.4050, L100.0500 #### [facility] [address] [place], [address] GAP 3 Low 5-15 [facility] Comment on above: Order Comment: Order Date: 06/05/24 Order Info: [id number] - CMP Performed By: #### L 502.0250, L500.4050, L100.0500 #### [facility] [address] [place], [address] GFR/1.73 sq M.predicted among non-blacks MDRD (S/P/Bld) [Vol rate/Area] 74 mL/min/{1.73_m2} Normal >60 [facility] Comment on above: Order Comment: Order Date: 06/05/24 Order Info: [id number] - CMP Result Comment: Non- GFR Calc Performed By: #### L 502.0250, L500.4050, L100.0500 #### [facility] [address] [place], [address] Globulin (S) [Mass/Vol] 3.0 g/dL Normal 2.2-4.2 [facility] Comment on above: Order Comment: Order Date: 06/05/24 Order Info: [id number] - CMP Performed By: #### L 502.0250, L500.4050, L100.0500 #### [facility] [address] [place], [address] Glucose [Mass/Vol] 86 mg/dL Normal 74-106 [facility] Comment on above: Order Comment: Order Date: 06/05/24 Order Info: [id number] - CMP Performed By: #### L 502.0250, L500.4050, L100.0500 #### [facility] [address] [place], [address] Potassium [Moles/Vol] 3.6 mmol/L Normal 3.5-5.1 [facility] Comment on above: Order Comment: Order Date: 06/05/24 Order Info: [id number] - CMP Performed By: #### L 502.0250, L500.4050, L100.0500 #### [facility] [address] [place], [address] Sodium [Moles/Vol] 143 mmol/L Normal 136-145 [facility] Comment on above: Order Comment: Order Date: 06/05/24 Order Info: [id number] - CMP Performed By: #### L 502.0250, L500.4050, L100.0500 #### [facility] [address] [place], [address] T PROT 6.5 g/dL Normal 6.4-8.2 [facility] Comment on above: Order Comment: Order Date: 06/05/24 Order Info: [id number] - CMP Performed By: #### L 502.0250, L500.4050, L100.0500 #### [facility] [address] [place], [address] Urea nitrogen [Mass/Vol] 20 mg/dL High 7-18 [facility] Comment on above: Order Comment: Order Date: 06/05/24 Order Info: [id number] - CMP Performed By: #### L 502.0250, L500.4050, L100.0500 #### [facility] [address] [place], [address] Microalb:Creat Ratio,Random URon 06-05-2024 Creatinine [Mass/Vol] 98.90 mg/dL Normal NO RANGE EST. [facility] Comment on above: Order Comment: Order Date: 06/05/24 Order Info: [id number] - MIACRE Performed By: #### L 502.0250, L500.4050, L100.0500 #### [facility] [address] [place], [address] MALB:CRE 6.4 mg/g CRE Normal <30 mg/g CRE [facility] Comment on above: Order Comment: Order Date: 06/05/24 Order Info: [id number] - MIACRE Performed By: #### L 502.0250, L500.4050, L100.0500 #### [facility] [address] [place], [address] MICROALBUMIN,UR 6.4 mg/L Normal NO RANGE EST. [facility] Comment on above: Order Comment: Order Date: 06/05/24 Order Info: [id number] - MIACRE Performed By: #### L 502.0250, L500.4050, L100.0500 #### [facility] [address] [place], [address] Surgery Visit Reporton 11-19 Surgery Visit Report [facility] [address] [place], [place] [address] OFFICE VISIT Date of Service: 11/20/23 MR#: [id number] Acct: [id number] Name: VIVIENNE BALL Charlie Rep #: [id number] : 1950 Provider: Dr. Sundeep mcfarland MD Age/Sex: 73/M Location: [facility] Status: Signed Intake Vital Signs 11/06/23 09:24 11/20/23 13:06 Height 5 ft 10 in BP 153/82 H Blood Pressure Location Lt brachial Position Sitting Respiration 18 Pulse 76 Pulse Source Monitor Pulse Oximetry (%) 97 Oxygen Delivery Method room air Intake Visit Reasons: S/P COLONOSCOPY FU Chief Complaint: s/p colonoscopy Is patient in pain?: No Allergies No Known Allergies Allergy (Verified 11/20/23 13:06) Medications ???Medication ???Instructions ???Recorded ???Confirmed ???Type multivitamin 1 cap PO DAILY 11/12/18 11/20/23 History amlodipine 5 mg tablet 2.5 mg PO DAILY 03/27/23 11/20/23 History albuterol sulfate 90 mcg/actuation 2 puff inhalation Q6H PRN 10/17/23 11/20/23 Rx aerosol inhaler shortness of breath or wheezing #8.5 grams fluticasone fur. 200 mcg-umeclid 1 inh inhalation DAILY PRN SOB 11/01/23 11/20/23 History 62.5 mcg-vilant 25 mcg inhalat.powder (Trelegy Ellipta) misoprostol 100 mcg tablet 100 mcg PO TIDCM 11/01/23 11/20/23 History turmeric root extract 150 1 tab PO DAILY 11/01/23 11/20/23 History mg-sabrina root extract 25 mg chewable tablet PFSH Medical History History of hypertension Wears partial dentures History of steroid therapy Gastric reflux Non-smoker History of stress test History of echocardiogram Cardiology follow-up encounter Hiatal hernia Recinos's esophagus GERD (gastroesophageal reflux disease) Unintentional weight loss Asthma-COPD overlap syndrome Thrombocytopenia Pulmonary fibrosis COPD (chronic obstructive pulmonary disease) BPH (benign prostatic hyperplasia) Rectal abscess Epigastric abdominal pain Surgical History History of esophagogastroduodenoscopy (EGD) History of tonsillectomy History of cholecystectomy H/O vein stripping Family History Mother Hypertension Father COPD (chronic obstructive pulmonary disease) Social History Smoking Status: Never smoker Electronic Cigarette Use: not used second hand exposure: No alcohol intake: never substance use type: former substance user Date of last use: Used Marijuana HPI HPI HPI: 73-year-old gentleman who presented to the office on October 22, 2023. His complaint at that time was a previous history of Recinos's esophagus. Patient felt that he had gastritis pain at that time that food was not exiting his stomach. Patient was wanting color photographs obtained. I assisted him with an esophagogastroduodenoscopy on November 06, 2023. The proximal esophagus was normal. There was mild esophagitis seen distally and a small hiatal hernia present. Some mild erythema of the antrum. Some mild erythema of the duodenal bulb. The pathology showed some minimal nonspecific chronic inflammation of the duodenum. Some mild chronic gastritis of the stomach with some focal intestinal metaplasia without dysplasia. The GE junction some mild chronic inflammation consistent with reflux. There is evidence of Recinos's but without dysplasia. Mid esophageal biopsies were unremarkable. H. pylori was negative. ROS General General: Yes fatigue; No weight change, appetite, colon cancer, breast cancer or weakness HEENT HEENT: No difficulty swallowing, eye injury, eye surgery, swollen glands or hoarseness Endo Endocrine: No thyroid disease, diabetes mellitus, thyroid cancer, Hair loss, heat intolerance or cold intolerance Skin Skin: No rash or changing moles Breast Breast: No left breast lump, right breast lump, nipple discharge, breast pain, abnormal mammogram, abnormal US or breast enlargement Musc Musculoskeletal: No back problems, arthritis, rheumatoid arthritis, gout or joint pain Cardio Cardiovascular: Yes high blood pressure; No murmur, pacemaker, heart disease, atrial fibrillation, heart attack, heart stent, palpitations, shortness of breat with exertion or chest pain Psych Psychiatric: No depression, anxiety or hearing voices Resp Respiratory: Yes shortness of breath, No sleep apnea, No cough, Yes COPD, No asthma, No emphysema and No wheezing Gastro Gastrointestinal: Yes abdominal pain, No nausea or vomiting, No diarrhea, No constipation, No blood in stool, No acid reflux, No hemorrhoids, No ulcers, No gallbladder problem and No black,tarry stools Seb Hematologic: No blood thinners, No b (more content not included)... Normal [facility] EGD Reporton 11-06-2023 EGD Report [facility] Medical Records Department [address] [place] [address] EGD Report MR#: [id number] Acct: [id number] Name: VIVIENNE BALL Rep #: [id number] : 1950 73 From: Sundeep Holland MD PCP: Dr. Aldo Ball MD Status:[facility] Patient Name: Vivienne Ball Procedure Date: 11/06/2023 10:32 AM Date of : 1950 Age: 73 Procedure: Upper GI endoscopy Indications: Dyspepsia Providers: Sundeep Holland MD Referring MD: Aldo Ball Medicines: See the Anesthesia note for documentation of the administered medications Complications: No immediate complications. Procedure: Pre-Anesthesia Assessment: - Prior to the procedure, a History and Physical was performed, and patient medications and allergies were reviewed. The patient's tolerance of previous anesthesia was also reviewed. The risks and benefits of the procedure and the sedation options and risks were discussed with the patient. All questions were answered, and informed consent was obtained. Prior Anticoagulants: The patient has taken no anticoagulant or antiplatelet agents. ASA Grade Assessment: II - A patient with mild systemic disease. After reviewing the risks and benefits, the patient was deemed in satisfactory condition to undergo the procedure. After obtaining informed consent, the endoscope was passed under direct vision. Throughout the procedure, the patient's blood pressure, pulse, and oxygen saturations were monitored continuously. The Endoscope was introduced through the mouth, and advanced to the second part of duodenum. The upper GI endoscopy was accomplished without difficulty. The patient tolerated the procedure well. Scope In: 10:40:51 AM Scope Out: 10:52:15 AM Total Procedure Duration Time 0 hours 11 minutes 24 seconds Findings: The proximal esophagus was normal. Esophagitis with no bleeding was found 18 cm from the incisors. Biopsies were taken with a cold forceps for histology. Esophagitis with no bleeding was found 44 cm from the incisors. Biopsies were taken with a cold forceps for histology. A small hiatal hernia was present. Diffuse mild inflammation characterized by erythema was found in the gastric antrum. Biopsies were taken with a cold forceps for histology. Diffuse mildly erythematous mucosa without active bleeding and with no stigmata of bleeding was found in the duodenal bulb. Biopsies were taken with a cold forceps for histology. Impression: - Normal proximal esophagus. - Esophagitis with no bleeding. Biopsied. - Reflux esophagitis with no bleeding. Rule out Recinos's esophagus. Biopsied. - Small hiatal hernia. - Chronic gastritis. Biopsied. - Erythematous duodenopathy. Biopsied. Recommendation: - Discharge patient to home. - Resume previous diet. - Continue present medications. - Telephone my office for pathology results in 1 week. Findings suggest gastritis some mild reflux esophagitis. Rule out Recinos's. Will await pathology and provide additional recommendations. Procedure Code(s): --- Professional --- 49350, Esophagogastroduodenoscopy, flexible, transoral; with biopsy, single or multiple Diagnosis Code(s): --- Professional --- K21.00, Gastro-esophageal reflux disease with esophagitis, without bleeding K44.9, Diaphragmatic hernia without obstruction or gangrene K29.50, Unspecified chronic gastritis without bleeding K31.89, Other diseases of stomach and duodenum R10.13, Epigastric pain CPT copyright 2021 [employer]. All rights reserved. The codes documented in this report are preliminary and upon environmental law professor review may be revised to meet current compliance requirements. Sundeep Holland MD 11/06/2023 10:59:42 AM This report has been signed electronically. Number of Addenda: 0 Note Initiated On: 11/06/2023 10:32 AM 11/06/23 1059 Date Sundeep Holland MD Cosigner Signature: Date (if indicated) CC: Dr. Aldo Ball MD; Dr. Sundeep Holland MD Date Dictated: 11/06/23 103 Date Transcribed: Neuroscience Director Na: LEANA Signed [facility] H Pylori (initial)on 024 H Pylori (initial) -------- -------- Patient Age/Sex Location Account Attending Physician -------- VIVIENNE BALL 73/M EN [id number] Dr. Sundeep Holland MD -------- Specimen: [id number] Received: 11/07/23 Status: LATESHA David Num: [id number] Spec Type: IMMUNO Subm Dr: Dr. Sundeep Holland MD PHYSICIAN INSTITUTION [place] [address] SPECIMEN INFORMATION: Tissue Source: Antrum biopsy Clinical Info: GERD Specimen Number: [id number] CPT code: 07416 METHODOLOGY: Deparaffinized sections of prefer/formalin-fixed tissue or PAP/DQ stained slides are incubated with monoclonal/polyclonal antibodies/oligonucleotide probes. Localization is made via biotin free immunoperoxidase method. Appropriate controls are performed and reacted as expected. Results on target cell population are indicated in the following table: RESULTS: ANTIBODY / CLONE RESULT Block B H Pylori (polyclonal) negative P53 (DO-7) negative, null pattern Ki-67 (30-9) positive These tests were developed and their performance characteristics determined by [facility]. They may not have been cleared or approved by the U.S. Food and Drug Administration. The FDA has determined that such clearance or approval is not necessary. The above immunohistochemical/dualISH markers are ordered and reviewed by the Pathologist. INTERPRETATION: Gastric antrum, biopsy: Negative for Helicobacter pylori organisms. No evidence of dysplasia. AM/ 11/08/2023 Signed (signature on file) Dr. Jamal Baldwin, 11/08/23 1348 -------- Normal [facility] Comment on above: Performed By: #### P H.PYLORI ####[facility] [address] [place], [address] Surgery Specimen Level David 11-05-2023 Surgery Specimen Level IV -------- Patient Age/Sex Location Account Attending Physician -------- VIVIENNE BALL 73/M EN [id number] Dr. Sundeep Holland MD -------- Specimen: Received: 11/06/23-1311 Status: LATESHA David Num: [id number] Spec Type: Gastric Bx Subm Dr: Dr. Sundeep Holland MD HEADER OPERATION: EGD biopsy PRE-OP DIAGNOSIS: GERD TISSUE SUBMITTED: A- Duodenum biopsy, B- Antrum biopsy, C- Distal esophagus biopsy, D- Mid esophagus biopsy -------- MICROSCOPIC DIAGNOSIS A. Duodenum, biopsy: Minimal non-specific chronic inflammation. B. Gastric antrum, biopsy: Mild chronic gastritis. Focal intestinal metaplasia. No evidence of dysplasia. See comment. C. Distal esophagus, biopsy: Gastroesophageal junctional mucosa with mild chronic inflammation. Focal changes of reflux. Focal goblet cell metaplasia. No evidence of dysplasia. See comment. D. Mid esophagus, biopsy: No pathologic change. AM/ 11/07/2023 COMMENT B. The results of immunohistochemistry for Helicobacter pylori will be reported separately ([id number]). Alcian blue/PAS stain with matched control supports the above diagnosis. C. Alcian blue/PAS stain with matched control supports the above diagnosis. MICROSCOPIC DESCRIPTION Slides are reviewed. GROSS DESCRIPTION A. Received in fixative is one container labeled with the patient's name and designated Duodenum biopsy. The specimen consists of one irregular fragment of light perry soft tissue that measures 0.3 x 0.3 x 0.1 cm. The specimen is totally submitted in one cassette. B. Received in fixative is one container labeled with the patient's name and designated Antrum biopsy. The specimen consists of two irregular fragments of light perry soft tissue that in aggregate measure 0.8 x 0.3 x 0.1 cm. The specimen is totally submitted in one cassette. -------- Patient Age/Sex Location Account Attending Physician -------- VIVIENNE BALL 73/M EN [id number] Dr. Sundeep Holland MD -------- C. Received in fixative is one container labeled with the patient's name and designated Distal esophagus biopsy. The specimen consists of multiple irregular fragments of light perry soft tissue that in aggregate measure 1.0 x 0.6 x 0.1 cm. The specimen is totally submitted in one cassette. D. Received in fixative is one container labeled with the patient's name and designated Mid esophagus biopsy. The specimen consists of one irregular fragment of light perry soft tissue that measures 0.4 x 0.3 x 0.1 cm. The specimen is totally submitted in one cassette. [place]/ 11/07/23 TC:3 [facility]:[id number] -------- Patient Age/Sex Location Account Attending Physician -------- QUINNVIVIENNE Guerra 73/M EN [id number] Dr. Sundeep Holland MD -------- Signed (signature on file) Dr. Jamal Baldwin DO 11/08/23 1111 -------- Normal [facility] Comment on above: Performed By: #### P SUIV ####[facility] [address] [place], [place], [address] Surgery Visit Reporton 10-21 Surgery Visit Report [facility] [address] [place] [address] OFFICE VISIT Date of Service: 10/22/23 MR#: [id number] Acct: [id number] Name: QUINNVIVIENNE Guerra Rep #: [id number] : 1950 Provider: Dr. Sundeep mcfarland MD Age/Sex: 73/M Location: [facility] Status: Signed Intake Vital Signs 05/28/23 11:48 10/22/23 13:40 Height 5 ft 10.87 in 5 ft 10 in Weight: 147 lb 8 oz BMI 21.2 BP 122/73 H Blood Pressure Location Rt brachial Position Sitting Respiration 20 H Pulse 98 Pulse Source Monitor Pulse Oximetry (%) 93 Oxygen Delivery Method room air Intake Visit Reasons: Over due for 3YR EGD LAST SEEN 2018 abdominal pain Chief Complaint: Discuss EGD Bag Maker Required: No Is patient in pain?: No Allergies No Known Allergies Allergy (Verified 10/22/23 13:42) Medications multivitamin 1 cap PO DAILY 11/12/18 [History Confirmed 10/22/23] amlodipine 5 mg tablet 2.5 mg PO DAILY 03/27/23 [History Confirmed 10/22/23] fluticasone fur. 200 mcg-umeclid 62.5 mcg-vilant 25 mcg inhalat.powder (Trelegy Ellipta) 1 inh inhalation DAILY #60 ea 03/27/23 [Rx Confirmed 10/22/23] finasteride 5 mg tablet mg 04/04/23 [History Confirmed 10/22/23] albuterol sulfate 90 mcg/actuation aerosol inhaler 2 puff inhalation Q6H PRN shortness of breath or wheezing #8.5 grams 10/17/23 [Rx Confirmed 10/22/23] PFSH Medical History (Updated 10/22/23 @ 13:39 by Lisset Baca) Asthma-COPD overlap syndrome Recinos's esophagus BPH (benign prostatic hyperplasia) COPD (chronic obstructive pulmonary disease) Epigastric abdominal pain GERD (gastroesophageal reflux disease) Hiatal hernia Pulmonary fibrosis Rectal abscess Thrombocytopenia Unintentional weight loss Surgical History (Updated 10/22/23 @ 13:40 by Lisset Baca) H/O vein stripping History of cholecystectomy History of cystoscopy History of esophagogastroduodenoscopy (EGD) History of tonsillectomy Family History Mother Hypertension Father COPD (chronic obstructive pulmonary disease) Social History Smoking Status: Never smoker Electronic Cigarette Use: not used second hand exposure: No alcohol intake: never substance use type: former substance user Date of last use: Used Marijuana HPI HPI HPI: 73-year-old gentleman referred by Dr. Aldo Ball for surgical follow-up regarding Recinos's esophagus and written compromise surgical consult recommendations will return to him. I have previously assisted the patient on December 13, 2017 with an esophagogastroduodenoscopy and biopsy. Recinos's esophagus and hiatal hernia and mild antral gastritis was identified. Pathology demonstrated findings suggestive gastroesophageal reflux disease though at that time intestinal metaplasia was not identified though it had been detected prior. H. pylori was negative. The patient presents today. He has multiple questions. He claims that he has gastritis pain that he can feel the food exiting his stomach. He provides me with [id number]-jyagr photos of 2018. He states that he continues to have gastritis pain. He is wonder whether its ulcerative pain. He denies current tobacco use. ROS General General: Yes fatigue; No weight change, appetite, colon cancer, breast cancer or weakness HEENT HEENT: No difficulty swallowing, eye injury, eye surgery, swollen glands or hoarseness Endo Endocrine: No thyroid disease, diabetes mellitus, thyroid cancer, Hair loss, heat intolerance or cold intolerance Skin Skin: No rash or changing moles Breast Breast: No left breast lump, right breast lump, nipple discharge, breast pain, abnormal mammogram, abnormal US or breast enlargement Musc Musculoskeletal: No back problems, arthritis, rheumatoid arthritis, gout or joint pain Cardio Cardiovascular: Yes high blood pressure; No murmur, pacemaker, heart disease, atrial fibrillation, heart attack, heart stent, palpitations, shortness of breat with exertion or chest pain Psych Psychiatric: No depression, anxiety or hearing voices Resp Respiratory: Yes shortness of breath, No sleep apnea, No cough, Yes COPD, No asthma, No emphysema and No wheezing Gastro Gastrointestinal: Yes abdominal pain, No nausea or vomiting, No diarrhea, No constipation, No blood in stool, No acid reflux, No hemorrhoids, No ulcers, No gallbladder problem and No black,tarry stools Seb Hematologic: No blood thinners, No blood disorders, No bleeding, No anemia and No blood clots Neuro Neurologic: No system reviewed and no additional complaints, except as documented, No as per HPI, No abnormal gait, No abnormal hearing, No abnormal movements, No abnormal speech, No behavioral changes, No burning sensations, No confusion, (more content not included)... Normal [facility] Absolute lymphocyte countOrd ered By: Aldo Ball on 08-28-2023 Lymphocytes Auto (Unsp spec) [#/Vol] 0.82 10*3/uL 0.83-4.51 [facility] Automated lymphocyte count a s percentage of total leukocytesOrdered By: Aldo Ball on 08-28-2023 Lymphocytes/100 WBC Auto (Unsp spec) 11.9 % 19-41 [facility] Basophil percentageOrdered B y: Aldo Ball on 08-28-2023 Basophils/100 WBC (Bld) 0.7 % 0-1 [facility] Bilirubin [Mass/Vol] 0.50 mg/dL 0.20-1.00 [facility] Comment on above: For patients on eltr ombopag therapy, use of Dimension Mcalester TBIL is not recommended. Chloride [Moles/Vol] 111 mmol/L 98-107 [facility] Cholesterol [Mass/Vol] 208 mg/dL <200 [facility] Comment on above: <200 mg/dL Desirable 200-240 mg/dL Borderline >240 mg/dL High Risk Eosinophils/100 WBC (Bld) 3.1 % 0-5 [facility] Glucose [Mass/Vol] 98 mg/dL 74-106 [facility] Hemoglobin (Bld) [Mass/Vol] 14.1 g/dL 13.0-16.5 [facility] Monocytes/100 WBC (Bld) 9.4 % 0-10 [facility] Neutrophils (Bld) [#/Vol] 5.1 10*3/uL 2.0-7.7 [facility] Neutrophils/100 WBC (Bld) 74.5 % 47-70 [facility] Potassium [Moles/Vol] 3.7 mmol/L 3.5-5.1 [facility] Protein [Mass/Vol] 6.7 g/dL 6.4-8.2 [facility] Sodium [Moles/Vol] 145 mmol/L 136-145 [facility] Triglyceride [Mass/Vol] 60 mg/dL <199 [facility] Comment on above: The drugs N-Acetylcy steine and Metamizole may falsely depress this assay.Serum Triglycerides Reference Interval Normal <150 mg/dL Borderline high 150 - 199 mg/dL High 200 - 499 mg/dL Very High > or = 500 mg/dL WBC (Bld) [#/Vol] 6.9 10*3/uL 4.4-11.0 [facility] CBC W/Diff, Automatedon 03-0 5-2023 Absolute Lymph 0.82 X10 3/uL Low 0.83-4.51 [facility] Comment on above: Order Comment: Order Date: 08/28/23 Order Info: 0184-1 - CBCD Performed By: #### L 506.0250, L500.4100, L500.4050, L100.0100, L503.0105, L506.0400, L501.9520 #### [facility] [address] [place], [address] Absolute Neut 5.1 X10 3/uL Normal 2.0-7.7 [facility] Comment on above: Order Comment: Order Date: 08/28/23 Order Info: 0184-1 - CBCD Performed By: #### L 506.0250, L500.4100, L500.4050, L100.0100, L503.0105, L506.0400, L501.9520 #### [facility] [address] [place], [place], [id number] (167) Basophils/100 WBC (Bld) 0.7 % Normal 0-1 [facility] Comment on above: Order Comment: Order Date: 08/28/23 Order Info: 0184-1 - CBCD Performed By: #### L 506.0250, L500.4100, L500.4050, L100.0100, L503.0105, L506.0400, L501.9520 #### [facility] [address] [place], [address] Eosinophils/100 WBC (Bld) 3.1 % Normal 0-5 [facility] Comment on above: Order Comment: Order Date: 08/28/23 Order Info: 0184-1 - CBCD Performed By: #### L 506.0250, L500.4100, L500.4050, L100.0100, L503.0105, L506.0400, L501.9520 #### [facility] [address] [place], [address] Erythrocyte distribution width (RBC) [Ratio] 12.8 % Normal 11.6-14.6 [facility] Comment on above: Order Comment: Order Date: 08/28/23 Order Info: 0184-1 - CBCD Performed By: #### L 506.0250, L500.4100, L500.4050, L100.0100, L503.0105, L506.0400, L501.9520 #### [facility] [address] [place], [place], [address] Hematocrit (Bld) [Volume fraction] 42.4 % Normal 40-54 [facility] Comment on above: Order Comment: Order Date: 08/28/23 Order Info: 0184-1 - CBCD Performed By: #### L 506.0250, L500.4100, L500.4050, L100.0100, L503.0105, L506.0400, L501.9520 #### [facility] [address] [facility] [place], [address] Hemoglobin (Bld) [Mass/Vol] 14.1 g/dL Normal 13.0-16.5 [facility] Comment on above: Order Comment: Order Date: 08/28/23 Order Info: 0184-1 - CBCD Performed By: #### L 506.0250, L500.4100, L500.4050, L100.0100, L503.0105, L506.0400, L501.9520 #### [facility] [address] [place], [address] IG% 0.400 Normal 0.0-0.9 [facility] Comment on above: Order Comment: Order Date: 08/28/23 Order Info: 0184-1 - CBCD Result Comment: IG% - Immature Granulocytes (promyelocytes, myelocytes and metamyelocytes) > 1% indicates that a LEFT SHIFT is Present. Performed By: #### L 506.0250, L500.4100, L500.4050, L100.0100, L503.0105, L506.0400, L501.9520 #### [facility] [address] [place], [address] Lymphocytes/100 WBC (Bld) 11.9 % Low 19-41 [facility] Comment on above: Order Comment: Order Date: 08/28/23 Order Info: [id number] - CBCD Performed By: #### L 506.0250, L500.4100, L500.4050, L100.0100, L503.0105, L506.0400, L501.9520 #### [facility] [address] [place], [address] MCH (RBC) [Entitic mass] 30.4 pg Normal 27.0-32.0 [facility] Comment on above: Order Comment: Order Date: 08/28/23 Order Info: 01809-23 - CBCD Performed By: #### L 506.0250, L500.4100, L500.4050, L100.0100, L503.0105, L506.0400, L501.9520 #### [facility] [address] [place], [address] MCHC (RBC) [Mass/Vol] 33.3 g/dL Normal 32-36 [facility] Comment on above: Order Comment: Order Date: 08/28/23 Order Info: 01809-23 - CBCD Performed By: #### L 506.0250, L500.4100, L500.4050, L100.0100, L503.0105, L506.0400, L501.9520 #### [facility] [address] [place], [address] MCV (RBC) [Entitic vol] 91.4 fL Normal 80-94 [facility] Comment on above: Order Comment: Order Date: 08/28/23 Order Info: 01809-23 - CBCD Performed By: #### L 506.0250, L500.4100, L500.4050, L100.0100, L503.0105, L506.0400, L501.9520 #### [facility] [address] [place], [address] Monocytes/100 WBC (Bld) 9.4 % Normal 0-10 [facility] Comment on above: Order Comment: Order Date: 08/28/23 Order Info: 0184-1 - CBCD Performed By: #### L 506.0250, L500.4100, L500.4050, L100.0100, L503.0105, L506.0400, L501.9520 #### [facility] [address] [place], [address] Neutrophils/100 WBC (Bld) 74.5 % High 47-70 [facility] Comment on above: Order Comment: Order Date: 08/28/23 Order Info: 0184-1 - CBCD Performed By: #### L 506.0250, L500.4100, L500.4050, L100.0100, L503.0105, L506.0400, L501.9520 #### [facility] [address] [place], [address] Nucleated RBC (Bld) [#/Vol] 0 10*3/uL Normal 0-5 [facility] Comment on above: Order Comment: Order Date: 08/28/23 Order Info: 0184-1 - CBCD Performed By: #### L 506.0250, L500.4100, L500.4050, L100.0100, L503.0105, L506.0400, L501.9520 #### [facility] [address] [place], [address] Platelet mean volume (Bld) [Entitic vol] 11.0 fL Normal 6.2-12.0 [facility] Comment on above: Order Comment: Order Date: 08/28/23 Order Info: 0184-1 - CBCD Performed By: #### L 506.0250, L500.4100, L500.4050, L100.0100, L503.0105, L506.0400, L501.9520 #### [facility] [address] [place], [address] Platelets (Bld) [#/Vol] 186 10*3/uL Normal 150-450 [facility] Comment on above: Order Comment: Order Date: 08/28/23 Order Info: 0184-1 - CBCD Performed By: #### L 506.0250, L500.4100, L500.4050, L100.0100, L503.0105, L506.0400, L501.9520 #### [facility] [address] [place], [address] RBC (Bld) [#/Vol] 4.64 10*6/uL Normal 4.6-6.[address] [facility] Comment on above: Order Comment: Order Date: 08/28/23 Order Info: 0184-1 - CBCD Performed By: #### L 506.0250, L500.4100, L500.4050, L100.0100, L503.0105, L506.0400, L501.9520 #### [facility] [address] [place], [address] RDW SD 42.5 fl Normal 35.1-43.9 [facility] Comment on above: Order Comment: Order Date: 08/28/23 Order Info: 0184-1 - CBCD Performed By: #### L 506.0250, L500.4100, L500.4050, L100.0100, L503.0105, L506.0400, L501.9520 #### [facility] [address] [place], [address] WBC (Bld) [#/Vol] 6.9 10*3/uL Normal 4.4-11.0 [facility] Comment on above: Order Comment: Order Date: 08/28/23 Order Info: 0184-1 - CBCD Performed By: #### L 506.0250, L500.4100, L500.4050, L100.0100, L503.0105, L506.0400, L501.9520 #### [facility] [address] [place], [place], [address] Comprehensive Metabolic Prof ilon 08-28-2023 Albumin [Mass/Vol] 3.6 g/dL Normal 3.2-5.0 [facility] Comment on above: Order Comment: Order Date: 08/28/23 Order Info: [id number]- - CMP Order Info: - LIPID Order Info: [id number] - TSH Order Info: [id number] - FOLS Order Info: 3023-12 - T4F N N Performed By: #### L 506.0250, L500.4100, L500.4050, L100.0100, L503.0105, L506.0400, L501.9520 #### [facility] [address] [place], [address] Albumin/Globulin [Mass ratio] 1.2 {ratio} Normal 0.9-2.4 [facility] Comment on above: Order Comment: Order Date: 08/28/23 Order Info: [id number] - CMP Order Info: - LIPID Order Info: [id number] - TSH Order Info: 8 - FOLS Order Info: 3023-12 - T4F N N Performed By: #### L 506.0250, L500.4100, L500.4050, L100.0100, L503.0105, L506.0400, L501.9520 #### [facility] [address] [place], [address] ALK P 29 U/L Low 45-117 [facility] [facility] Comment on above: Order Comment: Order Date: 08/28/23 Order Info: [id number] - CMP Order Info: [id number] - LIPID Order Info: 3 - TSH Order Info: 8 - FOLS Order Info: 3024-7 - T4F N N Performed By: #### L 506.0250, L500.4100, L500.4050, L100.0100, L503.0105, L506.0400, L501.9520 #### [facility] [address] [place], [address] ALT [Catalytic activity/Vol] 25 U/L Normal 16-61 [facility] Comment on above: Order Comment: Order Date: 08/28/23 Order Info: 86-1 - CMP Order Info: [id number] - LIPID Order Info: [id number] - TSH Order Info: 8 - FOLS Order Info: 3023-7 - T4F N N Performed By: #### L 506.0250, L500.4100, L500.4050, L100.0100, L503.0105, L506.0400, L501.9520 #### [facility] [address] [place], [address] AST [Catalytic activity/Vol] 14 U/L Low 15-37 [facility] Comment on above: Order Comment: Order Date: 08/28/23 Order Info: 785-1 - CMP Order Info: [id number] - LIPID Order Info: 3 - TSH Order Info: 8 - FOLS Order Info: 3023-7 - T4F N N Performed By: #### L 506.0250, L500.4100, L500.4050, L100.0100, L503.0105, L506.0400, L501.9520 #### [facility] [address] [place], [address] Bilirubin [Mass/Vol] 0.50 mg/dL Normal 0.20-1.00 [facility] Comment on above: Order Comment: Order Date: 08/28/23 Order Info: 86-1 - CMP Order Info: [id number] - LIPID Order Info: 3 - TSH Order Info: 8 - FOLS Order Info: 3023-7 - T4F N N Result Comment: For patients on eltrombopag therapy, use of Dimension Mcalester TBIL is not recommended. Performed By: #### L 506.0250, L500.4100, L500.4050, L100.0100, L503.0105, L506.0400, L501.9520 #### [facility] [address] [place], [address] BUN/CRE 18.8 RATIO Normal 10-20 [facility] Comment on above: Order Comment: Order Date: 08/28/23 Order Info: 785-1 - CMP Order Info: [id number] - LIPID Order Info: 3 - TSH Order Info: 8 - FOLS Order Info: 7 - T4F N N Performed By: #### L 506.0250, L500.4100, L500.4050, L100.0100, L503.0105, L506.0400, L501.9520 #### [facility] [address] [place], [address] CA,Total 8.8 mg/dL Normal 8.5-10.1 [facility] Comment on above: Order Comment: Order Date: 08/28/23 Order Info: 785- - CMP Order Info: [id number] - LIPID Order Info: [id number] - TSH Order Info: 8 - FOLS Order Info: 7 - T4F N N Performed By: #### L 506.0250, L500.4100, L500.4050, L100.0100, L503.0105, L506.0400, L501.9520 #### [facility] [address] [place], [address] Chloride [Moles/Vol] 111 mmol/L High 98-107 [facility] Comment on above: Order Comment: Order Date: 08/28/23 Order Info: 785-1 - CMP Order Info: [id number] - LIPID Order Info: 3 - TSH Order Info: 228-8 - FOLS Order Info: 3024-7 - T4F N N Performed By: #### L 506.0250, L500.4100, L500.4050, L100.0100, L503.0105, L506.0400, L501.9520 #### [facility] [address] [place], [place], [id number] CO2 [Moles/Vol] 27.0 mmol/L Normal 21.0-32.0 [facility] Comment on above: Order Comment: Order Date: 08/28/23 Order Info: 07- - CMP Order Info: [id number] - LIPID Order Info: 3 - TSH Order Info: [id number] - FOLS Order Info: 3023-12 - T4F N N Performed By: #### L 506.0250, L500.4100, L500.4050, L100.0100, L503.0105, L506.0400, L501.9520 #### [facility] [address] [place], [place], [address] Creatinine [Mass/Vol] 0.96 mg/dL Normal 0.70-1.30 [facility] Comment on above: Order Comment: Order Date: 08/28/23 Order Info: 0786- - CMP Order Info: [id number] - LIPID Order Info: 3 - TSH Order Info: 8 - FOLS Order Info: 3023-12 - T4F N N Result Comment: The validity of the calculated GFR GFRAA in patients over 70 years has not been determined. Clinical correlation is essential. Performed By: #### L 506.0250, L500.4100, L500.4050, L100.0100, L503.0105, L506.0400, L501.9520 #### [facility] [address] [place], [place], [id number] EST GFR - AA 100 mL/min Normal >60 [facility] Comment on above: Order Comment: Order Date: 08/28/23 Order Info: [id number] - CMP Order Info: [id number] - LIPID Order Info: [id number] - TSH Order Info: [id number] - FOLS Order Info: 3023-12 T4F N N Result Comment: Afri can [place] GFR Calc Performed By: #### L 506.0250, L500.4100, L500.4050, L100.0100, L503.0105, L506.0400, L501.9520 #### [facility] [address] [place], [address] GAP 7 Normal 5-15 [facility] Comment on above: Order Comment: Order Date: 08/28/23 Order Info: [id number] - CMP Order Info: - LIPID Order Info: [id number] - TSH Order Info: [id number] - FOLS Order Info: 3023-12 T4F N N Performed By: #### L 506.0250, L500.4100, L500.4050, L100.0100, L503.0105, L506.0400, L501.9520 #### [facility] [address] [place], [address] GFR/1.73 sq M.predicted among non-blacks MDRD (S/P/Bld) [Vol rate/Area] 82 mL/min/{1.73_m2} Normal >60 [facility] Comment on above: Order Comment: Order Date: 08/28/23 Order Info: 0786 - CMP Order Info: [id number] - LIPID Order Info: [id number] - TSH Order Info: 2284-01 - FOLS Order Info: 3023-12 T4F N N Result Comment: Non- GFR Calc Performed By: #### L 506.0250, L500.4100, L500.4050, L100.0100, L503.0105, L506.0400, L501.9520 #### [facility] [address] [place], [address] Globulin (S) [Mass/Vol] 3.1 g/dL Normal 2.2-4.2 [facility] Comment on above: Order Comment: Order Date: 08/28/23 Order Info: [id number] - CMP Order Info: - LIPID Order Info: [id number] - TSH Order Info: [id number] - FOLS Order Info: 7 - T4F N N Performed By: #### L 506.0250, L500.4100, L500.4050, L100.0100, L503.0105, L506.0400, L501.9520 #### [facility] [address] [place], [address] Glucose [Mass/Vol] 98 mg/dL Normal 74-106 [facility] Comment on above: Order Comment: Order Date: 08/28/23 Order Info: [id number] - CMP Order Info: - LIPID Order Info: [id number] - TSH Order Info: [id number] - FOLS Order Info: 3023-12 - T4F N N Performed By: #### L 506.0250, L500.4100, L500.4050, L100.0100, L503.0105, L506.0400, L501.9520 #### [facility] [address] [place], [address] Potassium [Moles/Vol] 3.7 mmol/L Normal 3.5-5.1 [facility] Comment on above: Order Comment: Order Date: 08/28/23 Order Info: 785-06 - CMP Order Info: - LIPID Order Info: [id number] - TSH Order Info: 8 - FOLS Order Info: 7 - T4F N N Performed By: #### L 506.0250, L500.4100, L500.4050, L100.0100, L503.0105, L506.0400, L501.9520 #### [facility] [address] [place], [address] Sodium [Moles/Vol] 145 mmol/L Normal 136-145 [facility] Comment on above: Order Comment: Order Date: 08/28/23 Order Info: 785- - CMP Order Info: - LIPID Order Info: [id number] - TSH Order Info: [id number] - FOLS Order Info: 7 - T4F N N Performed By: #### L 506.0250, L500.4100, L500.4050, L100.0100, L503.0105, L506.0400, L501.9520 #### [facility] [address] [place], [place], [address] T PROT 6.7 g/dL Normal 6.4-8.2 [facility] Comment on above: Order Comment: Order Date: 08/28/23 Order Info: [id number] - CMP Order Info: - LIPID Order Info: [id number] - TSH Order Info: [id number] - FOLS Order Info: 3023-12 - T4F N N Performed By: #### L 506.0250, L500.4100, L500.4050, L100.0100, L503.0105, L506.0400, L501.9520 #### [facility] [address] [place], [address] Urea nitrogen [Mass/Vol] 18 mg/dL Normal 7-18 [facility] Comment on above: Order Comment: Order Date: 08/28/23 Order Info: [id number] - CMP Order Info: - LIPID Order Info: [id number] - TSH Order Info: [id number] - FOLS Order Info: 7 - T4F N N Performed By: #### L 506.0250, L500.4100, L500.4050, L100.0100, L503.0105, L506.0400, L501.9520 #### [facility] [address] [place], [address] Determination of erythrocyte mean corpuscular volume (MCV)Ordered By: Aldo Ball on 08-28-2023 MCV (RBC) [Entitic vol] 91.4 fL 80-94 [facility] Erythrocyte distribution wid th ratioOrdered By: Aldo Ball on 08-28-2023 Erythrocyte distribution width (RBC) [Ratio] 12.8 % 11.6-14.6 [facility] Erythrocyte distribution wid th standard deviationOrdered By: Aldo Ball on 08-28-2023 Erythrocyte distribution width (RBC) [Entitic vol] 42.5 fL 35.1-43.9 [facility] Folates, (Folic Acid)on FOLATES 22.20 ng/mL Normal 3.1-55.4 [facility] Comment on above: Order Comment: Order Date: 08/28/23Order Info: [id number] - CMPOrder Info: [id number] - LIPIDOrder Info: [id number] - TSHOrder Info: [id number] - FOLSOrder Info: 3024-7 - T4FNN Performed By: #### L 506.0250, L500.4100, L500.4050, L100.0100, L503.0105, L506.0400, L501.9520 ####[facility] [address] [place], [address] Hematocrit Auto (Bld) [Volum e fraction]Ordered By: Aldo Ball on 08-28-2023 Hematocrit (Bld) [Volume fraction] 42.4 % 40-54 [facility] Immature granulocytes/100 WB C Auto (Bld)Ordered By: Aldo aBll on 08-28-2023 Immature granulocytes/100 WBC (Bld) 0.400 % 0.0-0.9 [facility] Comment on above: IG% - Immature Granu locytes (promyelocytes, myelocytes and metamyelocytes) > 1% indicates that a LEFT SHIFT is Present. Laboratory - Chemistry and C hemistry - challengeOrdered By: Aldo Ball on 08-28-2023 Albumin/Globulin [Mass ratio] 1.2 {ratio} 0.9-2.4 [facility] ALP [Catalytic activity/Vol] 29 U/L 45-117 [facility] ALT [Catalytic activity/Vol] 25 U/L 16-61 [facility] Cholesterol in HDL [Mass/Vol] 63 mg/dL >40 [facility] Comment on above: The drugs N-Acetylcy steine and Metamizole may falsely depress this assay. Reference Range HDL <40 mg/dL Low HDL Cholesterol HDL >or= 60 mg/dL High HDL Cholesterol Cholesterol in LDL [Mass/Vol] 133 mg/dL 0-130 [facility] CO2 [Moles/Vol] 27.0 mmol/L 21.0-32.0 [facility] Cobalamin (Vitamin B12) [Mass/Vol] 646 pg/mL 211-911 [facility] Globulin (S) [Mass/Vol] 3.1 g/dL 2.2-4.2 [facility] Urea nitrogen/Creatinine [Mass ratio] 18.8 mg/mg 10-20 [facility] - Hematology and Cell countsOrdered By: Aldo Ball on 08-28-2023 MCH (RBC) [Entitic mass] 30.4 pg 27.0-32.0 [facility] MCHC (RBC) [Mass/Vol] 33.3 g/dL 32-36 [facility] Nucleated RBC/100 WBC (Bld) [Ratio] 0 % 0-5 [facility] Platelet mean volume (Bld) [Entitic vol] 11.0 fL 6.2-12.0 [facility] Platelets (Bld) [#/Vol] 186 10*3/uL 150-450 [facility] Lipid Profileon 08-28-2023 Cholesterol [Mass/Vol] 208 mg/dL High 200 [facility] Comment on above: Order Comment: Order Date: 08/28/23 Order Info: [id number] - CMP Order Info: [id number] - LIPID Order Info: [id number] - TSH Order Info: [id number] - FOLS Order Info: 3024-7 - T4F N N Result Comment: <200 mg/dL Desirable 200-240 mg/dL Borderline >240 mg/dL High Risk Performed By: #### L 506.0250, L500.4100, L500.4050, L100.0100, L503.0105, L506.0400, L501.9520 #### [facility] [address] [place], [place], [id number] Cholesterol in HDL [Mass/Vol] 63 mg/dL Normal [facility] Comment on above: Order Comment: Order Date: 08/28/23 Order Info: 07 - CMP Order Info: - LIPID Order Info: [id number] - TSH Order Info: [id number] - FOLS Order Info: 3023-12 - T4F N N Result Comment: The drugs N-Acetylcysteine and Metamizole may falsely depress this assay. Reference Range HDL <40 mg/dL Low HDL Cholesterol HDL >or= 60 mg/dL High HDL Cholesterol Performed By: #### L 506.0250, L500.4100, L500.4050, L100.0100, L503.0105, L506.0400, L501.9520 #### [facility] [address] [place], [address] Cholesterol in LDL [Mass/Vol] 133 mg/dL High 0-130 [facility] Comment on above: Order Comment: Order Date: 08/28/23 Order Info: [id number] - CMP Order Info: - LIPID Order Info: [id number] - TSH Order Info: [id number] - FOLS Order Info: 3023-12 T4F N N Performed By: #### L 506.0250, L500.4100, L500.4050, L100.0100, L503.0105, L506.0400, L501.9520 #### [facility] [address] [place], [address] Cholesterol in VLDL [Mass/Vol] 12 mg/dL Normal 5-40 [facility] Comment on above: Order Comment: Order Date: 08/28/23 Order Info: 07 - CMP Order Info: - LIPID Order Info: [id number] - TSH Order Info: [id number] - FOLS Order Info: 3023-12 - T4F N N Performed By: #### L 506.0250, L500.4100, L500.4050, L100.0100, L503.0105, L506.0400, L501.9520 #### [facility] [address] [place], [place], [address] Triglyceride [Mass/Vol] 60 mg/dL Normal [facility] Comment on above: Order Comment: Order Date: 08/28/23 Order Info: [id number] - CMP Order Info: [id number] - LIPID Order Info: [id number] - TSH Order Info: [id number] - FOLS Order Info: 3024-7 - T4F N N Result Comment: The drugs N-Acetylcysteine and Metamizole may falsely depress this assay. Serum Triglycerides Reference Interval Normal <150 mg/dL Borderline high 150 - 199 mg/dL High 200 - 499 mg/dL Very High > or = 500 mg/dL Performed By: #### L 506.0250, L500.4100, L500.4050, L100.0100, L503.0105, L506.0400, L501.9520 #### [facility] [address] [place], [place], [id number] No Panel InformationOrdered By: Aldo Ball on 08-28-2023 Estimated GFR (MDRD) Amer 100 mL/min >60 [facility] Comment on above: GFR Calc Estimated GFR (MDRD) Non-Af Amer 82 mL/min >60 [facility] Comment on above: Non- GFR Calc Folate 22.20 ng/mL 3.1-55.4 [facility] VLDL Cholesterol 12 mg/dL 5-40 [facility] RBC Auto (Bld) [#/Vol]Ordere d By: Aldo Ball on 08-28-2023 RBC (Bld) [#/Vol] 4.64 10*6/uL 4.6-6.[address] [facility] Serum or plasma calcium carlos urement (mass/volume)Ordered By: Aldo Ball on 08-28-2023 Calcium [Mass/Vol] 8.8 mg/dL 8.5-10.1 [facility] Serum or plasma creatinine m easurement (mass/volume)Ordered By: Aldo Ball on 08-28-2023 Creatinine [Mass/Vol] 0.96 mg/dL 0.70-1.30 [facility] Comment on above: The validity of the calculated GFR & GFRAA in patients over 70 years has not been determined. Clinical correlation is essential. Serum or plasma thyroid stim ulating hormone (TSH) measurement (units/volume)Ordered By: Aldo Ball on 08-28-2023 TSH Qn 1.34 uIU/mL 0.358-3.74 [facility] Serum or plasma urea nitroge n measurement (mass/volume)Ordered By: Aldo Ball on 08-28-2023 Urea nitrogen [Mass/Vol] 18 mg/dL 7-18 [facility] T4 Free Directon 08-28-2023 T4 FREE DIRECT 0.88 ng/dL Normal 0.76-1.46 [facility] Comment on above: Order Comment: Order Date: 08/28/23Order Info: [id number] - CMPOrder Info: [id number] - LIPIDOrder Info: [id number] - TSHOrder Info: [id number] - FOLSOrder Info: 3023-12 - T4FNN Performed By: #### L 506.0250, L500.4100, L500.4050, L100.0100, L503.0105, L506.0400, L501.9520 ####[facility] [address] [place], [place], [id number] Thin prep Papanicolaou smear with manual screeningOrdered By: Aldo Ball on 08-28-2023 Thin prep Papanicolaou smear with manual screening 3.6 g/dL 3.2-5.0 [facility] Thin prep Papanicolaou smear with manual screening 14 U/L 15-37 [facility] Thin prep Papanicolaou smear with manual screening 7 5-15 [facility] Thin prep Papanicolaou smear with manual screening 0.88 ng/dL 0.76-1.46 [facility] Thyroid Stim Hormone (TSH)on 08-28-2023 TSH 1.34 uIU/mL Normal 0.358-3.74 [facility] Comment on above: Order Comment: Order Date: 08/28/23Order Info: [id number] - CMPOrder Info: [id number] - LIPIDOrder Info: 3 - TSHOrder Info: 8 - FOLSOrder Info: [id number] - T4FNN Performed By: #### L 506.0250, L500.4100, L500.4050, L100.0100, L503.0105, L506.0400, L501.9520 ####[facility] [address] [place], [address] Vitamin B12on 08-28-2023 Cobalamin (Vitamin B12) [Mass/Vol] 646 pg/mL Normal 211-911 [facility] Comment on above: Order Comment: Order Date: 08/28/23 Order Info: [id number] - B12 Performed By: #### L 506.0250, L500.4100, L500.4050, L100.0100, L503.0105, L506.0400, L501.9520 #### [facility] [address] [place], [address] Absolute lymphocyte countOrd ered By: ED PROVIDER on 05-28-2023 Lymphocytes Auto (Unsp spec) [#/Vol] 0.97 10*3/uL 0.83-4.51 [facility] Basophil percentageOrdered B y: ED PROVIDER on 05-28-2023 Basophils/100 WBC (Bld) 0.5 % 0-1 [facility] Chloride [Moles/Vol] 106 mmol/L 98-107 [facility] Eosinophils/100 WBC (Bld) 0.7 % 0-5 [facility] Glucose [Mass/Vol] 104 mg/dL 74-106 [facility] Comment on above: Fasting Glucose resu lt from 100 to 125 mg/dL suggests IMPAIRED HOMEOSTASIS per A.D.A. criteria. Neutrophils (Bld) [#/Vol] 2.6 10*3/uL 2.0-7.7 [facility] Neutrophils/100 WBC (Bld) 62.5 % 47-70 [facility] Potassium [Moles/Vol] 4.2 mmol/L 3.5-5.1 [facility] Sodium [Moles/Vol] 139 mmol/L 136-145 [facility] WBC (Bld) [#/Vol] 4.1 10*3/uL 4.4-11.0 [facility] Blood erythrocytes count (nu mber/volume)Ordered By: ED PROVIDER on 05-28-2023 RBC (Bld) [#/Vol] 5.18 10*6/uL 4.6-6.[address] [facility] Blood hemoglobin measurement (mass/volume)Ordered By: ED PROVIDER on 05-28-2023 Hemoglobin (Bld) [Mass/Vol] 16.5 g/dL 13.0-16.5 [facility] Blood lymphocytes/100 leukoc ytesOrdered By: ED PROVIDER on 05-28-2023 Lymphocytes/100 WBC (Bld) 23.5 % 19-41 [facility] Blood monocytes/100 leukocyt esOrdered By: ED PROVIDER on 05-28-2023 Monocytes/100 WBC (Bld) 12.6 % 0-10 [facility] Blood platelet mean volumeOr dered By: ED PROVIDER on 05-28-2023 Platelet mean volume (Bld) [Entitic vol] 10.6 fL 6.2-12.0 [facility] Determination of erythrocyte mean corpuscular volume (MCV)Ordered By: ED PROVIDER on 05-28-2023 MCV (RBC) [Entitic vol] 94.8 fL 80-94 [facility] Hematocrit Auto (Bld) [Volum e fraction]Ordered By: ED PROVIDER on 05-28-2023 Hematocrit (Bld) [Volume fraction] 49.1 % 40-54 [facility] INR in Blood by Coagulation assayOrdered By: ED PROVIDER on 05-28-2023 INR Coag (Bld) [Relative time] 1.0 {INR} [facility] - Chemistry and C hemistry - challengeOrdered By: ED PROVIDER on 05-28-2023 CO2 [Moles/Vol] 27.0 mmol/L 21.0-32.0 [facility] Urea nitrogen/Creatinine [Mass ratio] 16.0 mg/mg 10-20 [facility] - CoagulationOrde red By: ED PROVIDER on 05-28-2023 aPTT Coag (Bld) [Time] 28.8 s 24.1-36.2 [facility] PT Coag (PPP) [Time] 12.6 s 11.7-14.9 [facility] - Hematology and Cell countsOrdered By: ED PROVIDER on 05-28-2023 Erythrocyte distribution width (RBC) [Entitic vol] 43.8 fL 35.1-43.9 [facility] Erythrocyte distribution width (RBC) [Ratio] 12.6 % 11.6-14.6 [facility] Immature granulocytes/100 WBC (Bld) 0.200 % 0.0-0.9 [facility] Comment on above: IG% - Immature Granu locytes (promyelocytes, myelocytes and metamyelocytes) > 1% indicates that a LEFT SHIFT is Present. MCH (RBC) [Entitic mass] 31.9 pg 27.0-32.0 [facility] Nucleated RBC/100 WBC (Bld) [Ratio] 0 % 0-5 [facility] MCHC Auto (RBC) [Mass/Vol]Or dered By: ED PROVIDER on 05-28-2023 MCHC (RBC) [Mass/Vol] 33.6 g/dL 32-36 [facility] No Panel InformationOrdered By: ED PROVIDER on 05-28-2023 Estimated Creatinine Clearance Calc 51.96 ml/min [facility] Estimated GFR (MDRD) Amer 73 mL/min >60 [facility] Comment on above: GFR Calc Estimated GFR (MDRD) Non-Af Amer 60 mL/min >60 [facility] Comment on above: Non- GFR Calc Platelets bldOrdered By: ED PROVIDER on 05-28-2023 Platelets (Bld) [#/Vol] 157 10*3/uL 150-450 [facility] Serum or plasma calcium carlos urement (mass/volume)Ordered By: ED PROVIDER on 05-28-2023 Calcium [Mass/Vol] 8.9 mg/dL 8.5-10.1 [facility] Serum or plasma creatinine m easurement (mass/volume)Ordered By: ED PROVIDER on 05-28-2023 Creatinine [Mass/Vol] 1.25 mg/dL 0.70-1.30 [facility] Comment on above: The validity of the calculated GFR & GFRAA in patients over 70 years has not been determined. Clinical correlation is essential. Serum or plasma urea nitroge n measurement (mass/volume)Ordered By: ED PROVIDER on 05-28-2023 Urea nitrogen [Mass/Vol] 20 mg/dL 7-18 [facility] Thin prep Papanicolaou smear with manual screeningOrdered By: ED PROVIDER on 05-28-2023 Thin prep Papanicolaou smear with manual screening 6 5-15 [facility] Absolute lymphocyte countOrd ered By: Mayi Coburn on 04-04-2023 Lymphocytes Auto (Unsp spec) [#/Vol] 1.00 10*3/uL 0.83-4.51 [facility] Basophil percentageOrdered B y: Mayi Coburn on 04-04-2023 Basophils/100 WBC (Bld) 0.5 % 0-1 [facility] Chloride [Moles/Vol] 108 mmol/L 98-107 [facility] Eosinophils/100 WBC (Bld) 4.2 % 0-5 [facility] Glucose [Mass/Vol] 113 mg/dL 74-106 [facility] Comment on above: Fasting Glucose resu lt from 100 to 125 mg/dL suggests IMPAIRED HOMEOSTASIS per A.D.A. criteria. Neutrophils (Bld) [#/Vol] 5.4 10*3/uL 2.0-7.7 [facility] Neutrophils/100 WBC (Bld) 73.0 % 47-70 [facility] Potassium [Moles/Vol] 4.0 mmol/L 3.5-5.1 [facility] Sodium [Moles/Vol] 138 mmol/L 136-145 [facility] WBC (Bld) [#/Vol] 7.4 10*3/uL 4.4-11.0 [facility] Blood erythrocytes count (nu mber/volume)Ordered By: Mayi Coburn on 04-04-2023 RBC (Bld) [#/Vol] 4.81 10*6/uL 4.6-6.[address] [facility] Blood hemoglobin measurement (mass/volume)Ordered By: Mayi Coburn on 04-04-2023 Hemoglobin (Bld) [Mass/Vol] 15.5 g/dL 13.0-16.5 [facility] Blood lymphocytes/100 leukoc ytesOrdered By: Mayi Coburn on 04-04-2023 Lymphocytes/100 WBC (Bld) 13.5 % 19-41 [facility] Blood monocytes/100 leukocyt esOrdered By: Mayi Coburn on 04-04-2023 Monocytes/100 WBC (Bld) 8.5 % 0-10 [facility] Blood platelet mean volumeOr dered By: Mayi Coburn on 04-04-2023 Platelet mean volume (Bld) [Entitic vol] 10.6 fL 6.2-12.0 [facility] Determination of erythrocyte mean corpuscular volume (MCV)Ordered By: Mayi Coburn on 04-04-2023 MCV (RBC) [Entitic vol] 95.2 fL 80-94 [facility] Hematocrit Auto (Bld) [Volum e fraction]Ordered By: Mayi Coburn on 04-04-2023 Hematocrit (Bld) [Volume fraction] 45.8 % 40-54 [facility] - Chemistry and C hemistry - challengeOrdered By: [facility] 04-04-2023 CO2 [Moles/Vol] 26.0 mmol/L 21.0-32.0 [facility] Urea nitrogen/Creatinine [Mass ratio] 22.0 mg/mg 10-20 [facility] - Hematology and Cell countsOrdered By: Mayi Coburn on 04-04-2023 Erythrocyte distribution width (RBC) [Entitic vol] 43.9 fL 35.1-43.9 [facility] Erythrocyte distribution width (RBC) [Ratio] 12.4 % 11.6-14.6 [facility] Immature granulocytes/100 WBC (Bld) 0.300 % 0.0-0.9 [facility] Comment on above: IG% - Immature Granu locytes (promyelocytes, myelocytes and metamyelocytes) > 1% indicates that a LEFT SHIFT is Present. MCH (RBC) [Entitic mass] 32.2 pg 27.0-32.0 [facility] Nucleated RBC/100 WBC (Bld) [Ratio] 0 % 0-5 [facility] MCHC Auto (RBC) [Mass/Vol]Or dered By: Mayi Coburn on 04-04-2023 MCHC (RBC) [Mass/Vol] 33.8 g/dL 32-36 [facility] No Panel InformationOrdered By: [facility] on 04-04-2023 Estimated Creatinine Clearance Calc 57.77 ml/min [facility] Estimated GFR (MDRD) Amer 86 mL/min >60 [facility] Comment on above: GFR Calc Estimated GFR (MDRD) Non-Af Amer 71 mL/min >60 [facility] Comment on above: Non- GFR Calc Troponin I High Sensitivity 6 pg/mL 3.0-78.0 [facility] Comment on above: Please Note: New Ariella t Units and Gender Specific Reference Ranges. For more information see Policy Stat Procedure Mcalester High Sensitivity Troponin (TNIH) and attachments. Platelets bldOrdered By: Margo davis Almas on 04-04-2023 Platelets (Bld) [#/Vol] 169 10*3/uL 150-450 [facility] Serum or plasma calcium carlos urement (mass/volume)Ordered By: [facility] Coll[facility] on 04-04-2023 Calcium [Mass/Vol] 9.4 mg/dL 8.5-10.1 [facility] Serum or plasma creatinine m easurement (mass/volume)Ordered By: [facility] Coll[facility] on 04-04-2023 Creatinine [Mass/Vol] 1.09 mg/dL 0.70-1.30 [facility] Comment on above: The validity of the calculated GFR & GFRAA in patients over 70 years has not been determined. Clinical correlation is essential. Serum or plasma urea nitroge n measurement (mass/volume)Ordered By: [place] Zayrena on 04-04-2023 Urea nitrogen [Mass/Vol] 24 mg/dL 7-18 [facility] Thin prep Papanicolaou smear with manual screeningOrdered By: [facility] on 04-04-2023 Thin prep Papanicolaou smear with manual screening 4 5-15 [facility] No Panel InformationOrdered By: German Barajas on 01-30-2023 Prostate Specific Antigen Screen 0.51 ng/mL 0.00-4.00 [facility] Comment on above: This test was perfor med using the TPSA assay method for [facility]. Values obtained with differentassay methods cannot be used interchangably.When changing PSA assays in the course of monitoring apatient, additional sequential testing should be carriedout to confirm baseline values. Absolute lymphocyte countOrd ered By: Dr. Ball on 11-10-2022 Lymphocytes Auto (Unsp spec) [#/Vol] 0.70 10*3/uL 0.83-4.51 [facility] Basophil percentageOrdered B y: Dr. Ball on 11-10-2022 Basophils/100 WBC (Bld) 0.4 % 0-1 [facility] Bilirubin [Mass/Vol] 0.60 mg/dL 0.20-1.00 [facility] Comment on above: For patients on eltr ombopag therapy, use of Dimension Mcalester TBIL is not recommended. Chloride [Moles/Vol] 109 mmol/L 98-107 [facility] Eosinophils/100 WBC (Bld) 3.6 % 0-5 [facility] Glucose [Mass/Vol] 97 mg/dL 74-106 [facility] Neutrophils (Bld) [#/Vol] 5.5 10*3/uL 2.0-7.7 [facility] Neutrophils/100 WBC (Bld) 77.2 % 47-70 [facility] Potassium [Moles/Vol] 4.1 mmol/L 3.5-5.1 [facility] Protein [Mass/Vol] 6.7 g/dL 6.4-8.2 [facility] Sodium [Moles/Vol] 141 mmol/L 136-145 [facility] WBC (Bld) [#/Vol] 7.1 10*3/uL 4.4-11.0 [facility] Blood erythrocytes count (nu mber/volume)Ordered By: Dr. Ball on 11-10-2022 RBC (Bld) [#/Vol] 4.31 10*6/uL 4.6-6.[address] [facility] Blood hemoglobin measurement (mass/volume)Ordered By: Dr. Ball on 11-10-2022 Hemoglobin (Bld) [Mass/Vol] 14.0 g/dL 13.0-16.5 [facility] Blood lymphocytes/100 leukoc ytesOrdered By: Dr. Ball on 11-10-2022 Lymphocytes/100 WBC (Bld) 9.8 % 19-41 [facility] Blood monocytes/100 leukocyt esOrdered By: Dr. Ball on 11-10-2022 Monocytes/100 WBC (Bld) 8.7 % 0-10 [facility] Blood platelet mean volumeOr dered By: Dr. Ball on 11-10-2022 Platelet mean volume (Bld) [Entitic vol] 11.0 fL 6.2-12.0 [facility] Determination of erythrocyte mean corpuscular volume (MCV)Ordered By: Dr. Ball on 11-10-2022 MCV (RBC) [Entitic vol] 96.1 fL 80-94 [facility] Hematocrit Auto (Bld) [Volum e fraction]Ordered By: Dr. Ball on 11-10-2022 Hematocrit (Bld) [Volume fraction] 41.4 % 40-54 [facility] - Chemistry and C hemistry - challengeOrdered By: Dr. Ball on 11-10-2022 ALP [Catalytic activity/Vol] 31 U/L 45-117 [facility] ALT [Catalytic activity/Vol] 24 U/L 16-61 [facility] CO2 [Moles/Vol] 26.0 mmol/L 21.0-32.0 [facility] Globulin (S) [Mass/Vol] 3.2 g/dL 2.2-4.2 [facility] Urea nitrogen/Creatinine [Mass ratio] 22.2 mg/mg 10-20 [facility] - Hematology and Cell countsOrdered By: Dr. Ball on 11-10-2022 Erythrocyte distribution width (RBC) [Entitic vol] 44.5 fL 35.1-43.9 [facility] Erythrocyte distribution width (RBC) [Ratio] 12.6 % 11.6-14.6 [facility] Immature granulocytes/100 WBC (Bld) 0.300 % 0.0-0.9 [facility] Comment on above: IG% - Immature Granu locytes (promyelocytes, myelocytes and metamyelocytes) > 1% indicates that a LEFT SHIFT is Present. MCH (RBC) [Entitic mass] 32.5 pg 27.0-32.0 [facility] Nucleated RBC/100 WBC (Bld) [Ratio] 0 % 0-5 [facility] MCHC Auto (RBC) [Mass/Vol]Or dered By: Dr. Ball on 11-10-2022 MCHC (RBC) [Mass/Vol] 33.8 g/dL 32-36 [facility] No Panel InformationOrdered By: Dr. Ball on 11-10-2022 Estimated GFR (MDRD) Amer 87 mL/min >60 [facility] Comment on above: GFR Calc Estimated GFR (MDRD) Non-Af Amer 72 mL/min >60 [facility] Comment on above: Non- GFR Calc Prostate Specific Antigen Total 0.93 ng/mL 0.0-4.0 [facility] Comment on above: This test was perfor med using the TPSA assay method for the[employer] chemistry system. Values obtained with differentassay methods cannot be used interchangably.When changing PSA assays in the course of monitoring apatient, additional sequential testing should be carriedout to confirm baseline values. Platelets bldOrdered By: Dr. Ball on 11-10-2022 Platelets (Bld) [#/Vol] 206 10*3/uL 150-450 [facility] Serum or plasma albumin carlos urement (mass/volume)Ordered By: Dr. Ball on 11-10-2022 Albumin [Mass/Vol] 3.5 g/dL 3.2-5.0 [facility] Serum or plasma albumin/glob ulin mass ratioOrdered By: Dr. Ball on 11-10-2022 Albumin/Globulin [Mass ratio] 1.1 {ratio} 0.9-2.4 [facility] Serum or plasma calcium carlos urement (mass/volume)Ordered By: Dr. Ball on 11-10-2022 Calcium [Mass/Vol] 9.2 mg/dL 8.5-10.1 [facility] Serum or plasma creatinine m easurement (mass/volume)Ordered By: Dr. Ball on 11-10-2022 Creatinine [Mass/Vol] 1.08 mg/dL 0.70-1.30 [facility] Comment on above: The validity of the calculated GFR & GFRAA in patients over 70 years has not been determined. Clinical correlation is essential. Serum or plasma urea nitroge n measurement (mass/volume)Ordered By: Dr. Ball on 11-10-2022 Urea nitrogen [Mass/Vol] 24 mg/dL 7-18 [facility] Thin prep Papanicolaou smear with manual screeningOrdered By: Dr. Ball on 11-10-2022 Thin prep Papanicolaou smear with manual screening 16 U/L 15-37 [facility] Thin prep Papanicolaou smear with manual screening 6 5-15 [facility] No Panel Informationon 01-19 Prostate Specific Antigen Screen 0.70 ng/mL 0.00-4.00 [facility] Work Phone: Comment on above: This test was perfor med using the TPSA assay method for [facility]. Values obtained with differentassay methods cannot be used interchangably.When changing PSA assays in the course of monitoring apatient, additional sequential testing should be carriedout to confirm baseline values. Absolute lymphocyte counton 11-29-2021 Lymphocytes Auto (Unsp spec) [#/Vol] 1.35 10*3/uL 0.83-4.51 [facility] Work Phone: Basophil percentageon 2021 Basophil percentage < 0.2 AI 0.0-0.[address] [facility] Work Phone: Basophils/100 WBC (Bld) 0.6 % 0-1 [facility] Work Phone: Bilirubin [Mass/Vol] 0.60 mg/dL 0.20-1.00 [facility] Work Phone: Comment on above: For patients on eltr ombopag therapy, use of Dimension Mcalester TBIL is not recommended. Chloride [Moles/Vol] 108 mmol/L 98-107 [facility] Work Phone: Eosinophils/100 WBC (Bld) 4.4 % 0-5 [facility] Work Phone: Glucose [Mass/Vol] 106 mg/dL 74-106 [facility] Work Phone: Comment on above: Fasting Glucose resu lt from 100 to 125 mg/dL suggests IMPAIRED HOMEOSTASIS per A.D.A. criteria. Neutrophils (Bld) [#/Vol] 7.4 10*3/uL 2.0-7.7 [facility] Work Phone: Neutrophils/100 WBC (Bld) 73.8 % 47-70 [facility] Work Phone: Potassium [Moles/Vol] 4.2 mmol/L 3.5-5.1 [facility] Work Phone: Comment on above: Slight Hemolysis, Re sult may be falsely increased. Protein [Mass/Vol] 7.3 g/dL 6.4-8.2 [facility] Work Phone: Sodium [Moles/Vol] 139 mmol/L 136-145 [facility] Work Phone: WBC (Bld) [#/Vol] 10.1 10*3/uL 4.4-11.[address] [facility] Work Phone: Blood erythrocytes count (nu mber/volume)on 11-29-2021 RBC (Bld) [#/Vol] 4.90 10*6/uL 4.6-6.[address] [facility] Work Phone: Blood hemoglobin measurement (mass/volume)on 11-29-2021 Hemoglobin (Bld) [Mass/Vol] 15.7 g/dL 13.0-16.5 [facility] Work Phone: Blood lymphocytes/100 leukoc yteson 11-29-2021 Lymphocytes/100 WBC (Bld) 13.4 % 19-41 [facility] Work Phone: Blood monocytes/100 leukocyt eson 11-29-2021 Monocytes/100 WBC (Bld) 7.4 % 0-10 [facility] Work Phone: Blood platelet mean volumeon 11-29-2021 Platelet mean volume (Bld) [Entitic vol] 10.7 fL 6.2-12.0 [facility] Work Phone: Determination of erythrocyte mean corpuscular volume (MCV)on 11-29-2021 MCV (RBC) [Entitic vol] 94.3 fL 80-94 [facility] Work Phone: Hematocrit Auto (Bld) [Volum e fraction]on 11-29-2021 Hematocrit (Bld) [Volume fraction] 46.2 % 40-54 [facility] Work Phone: Laboratory - Chemistry and C hemistry - challengeon 11-29-2021 ALP [Catalytic activity/Vol] 32 U/L 45-117 [facility] Work Phone: ALT [Catalytic activity/Vol] 32 U/L 16-61 [facility] Work Phone: CO2 [Moles/Vol] 27.0 mmol/L 21.0-32.0 [facility] Work Phone: Globulin (S) [Mass/Vol] 3.3 g/dL 2.2-4.2 [facility] Work Phone: Natriuretic peptide B (Bld) [Mass/Vol] 28.1 pg/mL 0-100 [facility] Work Phone: Urea nitrogen/Creatinine [Mass ratio] 21.2 mg/mg 10-20 [facility] Work Phone: Laboratory - Hematology and Cell countson 11-29-2021 Erythrocyte distribution width (RBC) [Entitic vol] 43.4 fL 35.1-43.9 [facility] Work Phone: Erythrocyte distribution width (RBC) [Ratio] 12.6 % 11.6-14.6 [facility] Work Phone: Immature granulocytes/100 WBC (Bld) 0.400 % 0.0-0.9 [facility] Work Phone: Comment on above: IG% - Immature Granu locytes (promyelocytes, myelocytes and metamyelocytes) > 1% indicates that a LEFT SHIFT is Present. MCH (RBC) [Entitic mass] 32.0 pg 27.0-32.0 [facility] Work Phone: Nucleated RBC/100 WBC (Bld) [Ratio] 0 % 0-5 [facility] Work Phone: MCHC Auto (RBC) [Mass/Vol]on 11-29-2021 MCHC (RBC) [Mass/Vol] 34.0 g/dL 32-36 [facility] Work Phone: No Panel Informationon 11-29 Centromere B Antibody <0.2 AI 0.0-0.9 [facility] Work Phone: Estimated GFR (MDRD) Amer 82 mL/min >60 [facility] Work Phone: Comment on above: GFR Calc Estimated GFR (MDRD) Non-Af Amer 68 mL/min >60 [facility] Work Phone: Comment on above: Non- GFR Calc FOOTBALL COACH Antibody <0.2 AI 0.0-0.9 [facility] Work Phone: Platelets bldon 11-29-2021 Platelets (Bld) [#/Vol] 197 10*3/uL 150-450 [facility] Work Phone: Serum DNA double strand anti body assay (units/volume)on 11-29-2021 DNA double strand Ab Qn (S) 2 [IU]/mL 0-9 [facility] Work Phone: Comment on above: Negative <5 Equivoca l 5 - 9 Positive >9 Serum Na-1 antibody assay (u nits/volume)on 11-29-2021 Na-1 extractable nuclear Ab Qn (S) <0.2 AI 0.0-0.9 [facility] Work Phone: Serum Scl-70 extractable nuc lear antibody assay (units/volume)on 11-29-2021 SCL-70 extractable nuclear Ab Qn (S) <0.2 AI 0.0-0.9 [facility] Work Phone: Serum Ball extractable nucl ear antibody detectionon 11-29-2021 Ball extractable nuclear Ab Ql (S) <0.2 AI 0.0-0.9 [facility] Work Phone: Serum or plasma C reactive p rotein measurement (mass/volume)on 11-29-2021 CRP [Mass/Vol] mg/L 0.0-3.0 [facility] Work Phone: Comment on above: C-Reactive Protein ( CRP) provides useful information for thediagnosis, therapy and monitoring of inflammatory processesand associated diseases. For the evaluation of Relative Riskfor Cardiovascular Disease, a High Sensitivity CRP (HSCRP)should be ordered. Serum or plasma albumin carlos urement (mass/volume)on 11-29-2021 Albumin [Mass/Vol] 4.0 g/dL 3.2-5.0 [facility] Work Phone: Serum or plasma albumin/glob ulin mass ratioon 11-29-2021 Albumin/Globulin [Mass ratio] 1.2 {ratio} 0.9-2.4 [facility] Work Phone: Serum or plasma calcium carlos urement (mass/volume)on 11-29-2021 Calcium [Mass/Vol] 9.2 mg/dL 8.5-10.1 [facility] Work Phone: Serum or plasma creatinine m easurement (mass/volume)on 11-29-2021 Creatinine [Mass/Vol] 1.13 mg/dL 0.70-1.30 [facility] Work Phone: Comment on above: The validity of the calculated GFR & GFRAA in patients over 70 years has not been determined. Clinical correlation is essential. Serum or plasma transthyreti n measurement (mass/volume)on 11-29-2021 Prealbumin [Mass/Vol] 29.8 mg/dL 20.0-40.0 [facility] Work Phone: Serum or plasma urea nitroge n measurement (mass/volume)on 11-29-2021 Urea nitrogen [Mass/Vol] 24 mg/dL 7-18 [facility] Work Phone: Serum rheumatoid factor dete ctionon 11-29-2021 Rheumatoid factor Ql (S) < 10.0 IU/mL <15 [facility] Work Phone: Thin prep Papanicolaou smear with manual screeningon 11-29-2021 Thin prep Papanicolaou smear with manual screening 21 U/L 15-37 [facility] Work Phone: Comment on above: Slight Hemolysis, Re sult may be falsely increased. Thin prep Papanicolaou smear with manual screening 4 5-15 [facility] Work Phone: Basophil percentageon 2021 Bilirubin [Mass/Vol] 0.70 mg/dL 0.20-1.00 [facility] Work Phone: Comment on above: For patients on eltr ombopag therapy, use of Dimension Mcalester TBIL is not recommended. Chloride [Moles/Vol] 108 mmol/L 98-107 [facility] Work Phone: Cholesterol [Mass/Vol] 224 mg/dL <200 [facility] Work Phone: Comment on above: <200 mg/dL Desirable 200-240 mg/dL Borderline >240 mg/dL High Risk Glucose [Mass/Vol] 100 mg/dL 74-106 [facility] Work Phone: Comment on above: Fasting Glucose resu lt from 100 to 125 mg/dL suggests IMPAIRED HOMEOSTASIS per A.D.A. criteria. Potassium [Moles/Vol] 3.8 mmol/L 3.5-5.1 [facility] Work Phone: Protein [Mass/Vol] 7.4 g/dL 6.4-8.2 [facility] Work Phone: Sodium [Moles/Vol] 142 mmol/L 136-145 [facility] Work Phone: Triglyceride [Mass/Vol] 66 mg/dL <199 [facility] Work Phone: Comment on above: The drugs N-Acetylcy steine and Metamizole may falsely depress this assay.Serum Triglycerides Reference Interval Normal <150 mg/dL Borderline high 150 - 199 mg/dL High 200 - 499 mg/dL Very High > or = 500 mg/dL Laboratory - Chemistry and C hemistry - challengeon 10-13-2021 ALP [Catalytic activity/Vol] 32 U/L 45-117 [facility] Work Phone: ALT [Catalytic activity/Vol] 28 U/L 16-61 [facility] Work Phone: CO2 [Moles/Vol] 28.0 mmol/L 21.0-32.0 [facility] Work Phone: Globulin (S) [Mass/Vol] 3.5 g/dL 2.2-4.2 [facility] Work Phone: Urea nitrogen/Creatinine [Mass ratio] 23.3 mg/mg 10-20 [facility] Work Phone: No Panel Informationon 10-13 Estimated GFR (MDRD) Amer 92 mL/min >60 [facility] Work Phone: Comment on above: GFR Calc Estimated GFR (MDRD) Non-Af Amer 76 mL/min >60 [facility] Work Phone: Comment on above: Non- GFR Calc Serum or plasma albumin carlos urement (mass/volume)on 10-13-2021 Albumin [Mass/Vol] 3.9 g/dL 3.2-5.0 [facility] Work Phone: Serum or plasma albumin/glob ulin mass ratioon 10-13-2021 Albumin/Globulin [Mass ratio] 1.1 {ratio} 0.9-2.4 [facility] Work Phone: Serum or plasma calcium carlos urement (mass/volume)on 10-13-2021 Calcium [Mass/Vol] 9.3 mg/dL 8.5-10.1 [facility] Work Phone: Serum or plasma cholesterol in HDL measurement (mass/volume)on 10-13-2021 Cholesterol in HDL [Mass/Vol] 72 mg/dL >40 [facility] Work Phone: Comment on above: The drugs N-Acetylcy steine and Metamizole may falsely depress this assay. Reference Range HDL <40 mg/dL Low HDL Cholesterol HDL >or= 60 mg/dL High HDL Cholesterol Serum or plasma cholesterol in VLDL measurement (mass/volume)on 10-13-2021 Cholesterol in VLDL [Mass/Vol] 13 mg/dL 5-40 [facility] Work Phone: Serum or plasma creatinine m easurement (mass/volume)on 10-13-2021 Creatinine [Mass/Vol] 1.03 mg/dL 0.70-1.30 [facility] Work Phone: Comment on above: The validity of the calculated GFR & GFRAA in patients over 70 years has not been determined. Clinical correlation is essential. Serum or plasma low density lipoprotein (LDL) cholesterol measurement (mass/volume)on 10-13-2021 Cholesterol in LDL [Mass/Vol] 139 mg/dL 0-130 [facility] Work Phone: Serum or plasma urea nitroge n measurement (mass/volume)on 10-13-2021 Urea nitrogen [Mass/Vol] 24 mg/dL 7-18 [facility] Work Phone: Thin prep Papanicolaou smear with manual screeningon 10-13-2021 Thin prep Papanicolaou smear with manual screening 17 U/L 15-37 [facility] Work Phone: Thin prep Papanicolaou smear with manual screening 6 5-15 [facility] Work Phone: Vital Signs Date Time Vital Sign Value Performing Clinician Faci lity 05-28-2023 11:48-0500 Body height 180.[address] Aldo Ball Work Phone: [facility] 05-28-2023 11:48-0500 Body mass index (BMI) [Ratio] 21.2 kg/m2 Dr. Aldo Ball Work Phone: [facility] 05-28-2023 11:48-0500 Body temperature 95.9 [degF] Dr. Aldo Ball Work Phone: [facility] 05-28-2023 11:48-0500 Body weight 68.[address] Aldo Ball Work Phone: [facility] 05-28-2023 11:48-0500 Diastolic blood pressure 120 mm[Hg] Dr. Aldo Ball Work Phone: [facility] 05-28-2023 11:48-0500 Heart rate 72 /min Dr. Aldo Ball Work Phone: [facility] 05-28-2023 11:48-0500 Respiratory rate 18 /min Dr. Aldo Ball Work Phone: [facility] 05-28-2023 11:48-0500 SaO2% (BldA) [Mass fraction] 95 % Dr. Aldo Ball Work Phone: 1(405)271-961346 [place] [address] 05-28-2023 11:48-0500 Systolic blood pressure 148 mm[Hg] Dr. Aldo Ball Work Phone: 8(365)548-663946 [place] [address] 04-04-2023 13:32-0400 Diastolic blood pressure 71 mm[Hg] Dr. Aldo Ball Work Phone: 3(789)905-771546 [place] [address] 04-04-2023 13:32-0400 Heart rate 77 /min Dr. Aldo aBll Work Phone: 8(256)979-345550 [place] [address] 04-04-2023 13:32-0400 Respiratory rate 19 /min Dr. Aldo Ball Work Phone: 9(628)352-680850 [place] [address] 04-04-2023 13:32-0400 SaO2% (BldA) [Mass fraction] 96 % Dr. Aldo Ball Work Phone: 1(663)406-290246 [place] [address] 04-04-2023 13:32-0400 Systolic blood pressure 151 mm[Hg] Dr. Aldo Ball Work Phone: 1(266)152-509050 [place] [address] 04-04-2023 12:13-0400 Body height 180.[address] Aldo Ball Work Phone: 4(140)698-019550 [place] [address] 04-04-2023 12:13-0400 Body mass index (BMI) [Ratio] 20.5 kg/m2 Dr. Aldo Ball Work Phone: 0(869)219-368446 [place] [address] 04-04-2023 12:13-0400 Body temperature 97.2 [degF] Dr. Aldo Ball Work Phone: 2(132)440-645550 [place] [address] 04-04-2023 12:13-0400 Body weight 66.[address] Aldo Ball Work Phone: 0(465)568-507150 [place] [address] 03-27-2023 09:44-0400 Body mass index (BMI) [Ratio] 20.7 kg/m2 Dr. Aldo Ball Work Phone: 7(466)612-369546 [place] [address] 03-27-2023 09:44-0400 Body temperature 97.4 [degF] Dr. Aldo Ball Work Phone: [facility] 03-27-2023 09:44-0400 Body weight 67.[address] Aldo Ball Work Phone: [facility] 03-27-2023 09:44-0400 Diastolic blood pressure 79 mm[Hg] Dr. Aldo Ball Work Phone: 6(485)327-937446 [place] [address] 03-27-2023 09:44-0400 Heart rate 86 /min Dr. lAdo Ball Work Phone: 4(895)015-588846 [place] [address] 03-27-2023 09:44-0400 Respiratory rate 18 /min Dr. Aldo Ball Work Phone: 8(342)193-682247 [address] 03-27-2023 09:44-0400 SaO2% (BldA) [Mass fraction] 95 % Dr. Aldo Ball Work Phone: 5(919)552-881846 [place] [address] 03-27-2023 09:44-0400 Systolic blood pressure 170 mm[Hg] Dr. Aldo Ball Work Phone: 5(481)379-944347 [address] 11-23-2022 07:43-0400 Body height 180.[address] Aldo Ball Work Phone: 7(106)879-540647 [address] 11-23-2022 07:43-0400 Body mass index (BMI) [Ratio] 20.5 kg/m2 Dr. Aldo Ball Work Phone: 3(633)825-896746 [place] [address] 11-23-2022 07:43-0400 Body temperature 97.6 [degF] Dr. Aldo Ball Work Phone: 7(539)846-021746 [place] [address] 11-23-2022 07:43-0400 Body weight 66.[address] Aldo Ball Work Phone: [facility] 11-23-2022 07:43-0400 Diastolic blood pressure 78 mm[Hg] Dr. Aldo Ball Work Phone: 3(136)138-827346 [place] [address] 11-23-2022 07:43-0400 Heart rate 79 /min Dr. Aldo Ball Work Phone: [facility] 11-23-2022 07:43-0400 Respiratory rate 20 /min Dr. Aldo Ball Work Phone: [facility] 11-23-2022 07:43-0400 SaO2% (BldA) [Mass fraction] 97 % Dr. Aldo Ball Work Phone: [facility] 11-23-2022 07:43-0400 Systolic blood pressure 153 mm[Hg] Dr. Aldo Ball Work Phone: [facility] 01-02-2022 08:28-0400 Body height 175.[address] Aldo Ball Work Phone: [facility] Work Phone: 01-02-2022 08:18-0400 Body mass index (BMI) [Ratio] 20.9 kg/m2 Dr. Aldo Ball Work Phone: [facility] Work Phone: 01-02-2022 08:18-0400 Body temperature 97.8 [degF] Dr. Aldo Ball Work Phone: [facility] Work Phone: 01-02-2022 08:18-0400 Body weight 64.[address] Aldo Ball Work Phone: [facility] Work Phone: 01-02-2022 08:18-0400 Diastolic blood pressure 82 mm[Hg] Dr. Aldo Ball Work Phone: [facility] Work Phone: 01-02-2022 08:18-0400 Heart rate 79 /min Dr. Aldo Ball Work Phone: [facility] Work Phone: 01-02-2022 08:18-0400 Respiratory rate 17 /min Dr. Aldo Ball Work Phone: [facility] Work Phone: 01-02-2022 08:18-0400 SaO2% (BldA) [Mass fraction] 93 % Dr. Aldo Ball Work Phone: [facility] Work Phone: 01-02-2022 08:18-0400 Systolic blood pressure 132 mm[Hg] Dr. Aldo Ball Work Phone: [facility] Work Phone: Encounters Encounter Date Encounter Type Care Provider Facility Start: 06-05-2024 End: 06-05-2024 ambulatory Aldo Ball Facility:[facility] Start: 02-01-2024 ambulatory Aldo Ball OLS Facility :[facility] Start: 11-20-2023 End: 11-20-2023 ambulatory Sundeep Holland Facility:[facility] Start: 11-06-2023 ambulatory Aldo Ball Facility:[facility] Start: 11-06-2023 End: 11-06-2023 ambulatory Aldo Ball Facility:[facility] Start: 10-22-2023 End: 10-22-2023 ambulatory Aldo Ball Facility:[facility] Start: 08-28-2023 End: 08-28-2023 ambulatory [facility] Work Phone: Start: 08-28-2023 End: 08-28-2023 Patient encounter procedure [facility] Work Phone: Start: 08-28-2023 End: 08-28-2023 ambulatory Aldo Ball Facility:[facility] Start: 06-08-2023 End: 06-08-[address] Aldo Ball Work Phone: [facility] Work Phone: Start: 06-08-2023 End: 06-08-[address] Aldo Ball Work Phone: [facility] Work Phone: Start: 05-28-2023 End: 05-28-2023 Emergency department patient visit Dr. Aldo Ball Work Phone: [facility]-Emergency Department Work Phone: Start: 04-18-2023 Non-patient / Non-visit Dr. James Ball Work Phone: [facility] Start: 04-17-2023 End: 04-17-[address] Aldo Ball Work Phone: [facility] Work Phone: Start: 04-17-2023 End: 04-17-[address] Aldo Ball Work Phone: [facility]-Pulmonary Services/Neurology Work Phone: Start: 04-04-2023 End: 04-04-2023 Emergency department patient visit Dr. Aldo Ball Work Phone: [facility]-Emergency Department Work Phone: Start: 03-27-2023 End: 03-27-[address] [facility] Work Phone: Start: 01-30-2023 End: 01-30-[address] Aldo Ball Work Phone: [facility] Work Phone: Start: 01-30-2023 End: 01-30-[address] [facility] Start: 11-23-2022 End: 11-23-[address] [facility] Work Phone: Start: 11-10-2022 End: 11-10-2022 ambulatory [facility] Work Phone: Start: 11-10-2022 End: 11-10-2022 [facility] Start: 01-19-2022 End: 01-19-[address] Aldo Ball Work Phone: [facility]Laboratory Start: 01-02-2022 End: 01-02-[address] Aldo Ball Work Phone: [facility] Start: 12-16-2021 End: 12-16-2021 Patient encounter procedure [facility], [facility] Start: 12-12-2021 End: 12-12-2021 Patient encounter procedure [facility]Pulmonary Services/Neurology Start: 11-29-2021 End: 11-29-2021 Patient encounter procedure [facility]Laboratory Start: 10-13-2021 End: 10-13-2021 Patient encounter procedure [facility]-Laboratory, [place] Start: 08-31-2020 Patient encounter status [facility] Procedures Date Procedure Procedure Detail Performing Clinician Start: 06-08-2023 Plain chest X-ray Dr. Jo-Ann Ball Work Phone: Start: 04-04-2023 Plain chest X-ray Dr. Jo-Ann Ball Work Phone: Start: 12-16-2021 CT of chest without contrast Plan of Treatment Date Care Activity Detail Author Start: 05-28-2023 Partial thromboplastin time, activated [facility] Start: 05-28-2023 Prothrombin time [facility] Start: 05-28-2023 [facility] Start: 05-28-2023 Electrocardiographic procedure [facility] Start: 04-04-2023 End: 04-04-2023 [facility] INR in Blood by Coag ulation assay [facility] Patient Education ED Chest Wall Contusion ED Chest Wall Pain, Costochondritis [facility] Work Phone: Patient referral [facility] Work Phone: Payers Date Payer Category Payer Self-pay [id number] 2015 Medicare [id number] 2014 Unknown [id number] Unknown [id number] 2.16.8 [id number] Unknown [id number] 2.16.8 [id number] Unknown [id number] 2.16.8 [id number] Unknown [id number] 2.16.8 [id number] Unknown [id number] 2.16.8 [id number] Unknown [id number] 2.16.8 [id number] Unknown [id number] 2.16.8 [id number] Social History Date Type Detail Facility Start: 09-01-2020 End: 04-04-2023 Tobacco smoking status NHIS Unknown if ever smoked [facility] Start: 1950 Sex Assigned At Male [facility] Mental Status Date Assessment Result Facility 04-04-2023 Cognitive function Level Of Cons ciousness Awake;Alert;Appropriate;Follow s Commands [facility] Work Phone: Clinical Note 11-06-2023 Note Date & Type Note Facility 11-06-2023 Note [facility] Medical Records Department [address] [place] [address] History Physical Exam 11/06/23922 MR#: [id number] Acct: [id number] Name: VIVIENNE BALL Charlie Rep #: [id number] : 1950 73 From: Sundeep Holland MD PCP: Dr. Aldo Ball MD Status:[facility] Location: [place] [address] History and Physical Date of Admission: 11/06/23 Visit Reasons: Over due for 3YR EGD LAST SEEN 2018 abdominal pain Chief Complaint: Discuss EGD Bag Maker Required: No Is patient in pain?: No Allergies No Known Allergies Allergy (Verified 10/22/23 13:42) Medications multivitamin 1 cap PO DAILY 11/12/18 [History Confirmed 10/22/23] amlodipine 5 mg tablet 2.5 mg PO DAILY 03/27/23 [History Confirmed 10/22/23] fluticasone fur. 200 mcg-umeclid 62.5 mcg-vilant 25 mcg inhalat.powder (Trelegy Ellipta) 1 inh inhalation DAILY #60 ea 03/27/23 [Rx Confirmed 10/22/23] finasteride 5 mg tablet mg 04/04/23 [History Confirmed 10/22/23] albuterol sulfate 90 mcg/actuation aerosol inhaler 2 puff inhalation Q6H PRN shortness of breath or wheezing #8.5 grams 10/17/23 [Rx Confirmed 10/22/23] PFSH Medical History (Updated 10/22/23 @ 13:39 by Lisset Baca) Asthma-COPD overlap syndrome Recinos's esophagus BPH (benign prostatic hyperplasia) COPD (chronic obstructive pulmonary disease) Epigastric abdominal pain GERD (gastroesophageal reflux disease) Hiatal hernia Pulmonary fibrosis Rectal abscess Thrombocytopenia Unintentional weight loss Surgical History (Updated 10/22/23 @ 13:40 by Lisset Baca) H/O vein stripping History of cholecystectomy History of cystoscopy History of esophagogastroduodenoscopy (EGD) History of tonsillectomy Family History Mother HypertensionFather COPD (chronic obstructive pulmonary disease) Social History Smoking Status: Never smoker Electronic Cigarette Use: not used second hand exposure: No alcohol intake: never substance use type: former substance user Date of last use: Used Marijuana HPI HPI HPI: 73-year-old gentleman referred by Dr. Aldo Ball for surgical follow-up regarding Recinos's esophagus and written compromise surgical consult recommendations will return to him. I have previously assisted the patient on December 13, 2017 with an esophagogastroduodenoscopy and biopsy. Recinos's esophagus and hiatal hernia and mild antral gastritis was identified. Pathology demonstrated findings suggestive gastroesophageal reflux disease though at that time intestinal metaplasia was not identified though it had been detected prior. H. pylori was negative. The patient presents today. He has multiple questions. He claims that he has gastritis pain that he can feel the food exiting his stomach. He provides me with [id number] photos of 2018. He states that he continues to have gastritis pain. He is wonder whether its ulcerative pain. He denies current tobacco use. ROS General General: Yes fatigue; No weight change, appetite, colon cancer, breast cancer or weakness HEENT HEENT: No difficulty swallowing, eye injury, eye surgery, swollen glands or hoarseness Endo Endocrine: No thyroid disease, diabetes mellitus, thyroid cancer, Hair loss, heat intolerance or cold intolerance Skin Skin: No rash or changing moles Breast Breast: No left breast lump, right breast lump, nipple discharge, breast pain, abnormal mammogram, abnormal US or breast enlargement Musc Musculoskeletal: No back problems, arthritis, rheumatoid arthritis, gout or joint pain Cardio Cardiovascular: Yes high blood pressure; No murmur, pacemaker, heart disease, atrial fibrillation, heart attack, heart stent, palpitations, shortness of breat with exertion or chest pain Psych Psychiatric: No depression, anxiety or hearing voices Resp Respiratory: Yes shortness of breath, No sleep apnea, No cough, Yes COPD, No asthma, No emphysema and No wheezing Gastro Gastrointestinal: Yes abdominal pain, No nausea or vomiting, No diarrhea, No constipation, No blood in stool, No acid reflux, No hemorrhoids, No ulcers, No gallbladder problem and No black,tarry stools Seb Hematologic: No blood thinners, No blood disorders, No bleeding, No anemia and No blood clots Neuro Neurologic: No system reviewed and no additional complaints, except as documented, No as per HPI, No abnormal gait, No abnormal hearing, No abnormal movements, No abnormal speech, No behavioral changes, No burning sensations, No confusion, No convulsions, No disequilibrium, No dizziness, No localized weakness, No frequent falls, No headache(s), No lack of coordination, No loss of vision, No memory loss, No numbness, No other visual disturbances, No radicular pain, No restless legs, No sensory deficit, No syncope, No tingling, No tremor(s), No weakness an (more content not included)... [facility] Procedure note 04-18-2023 Note Date & Type Note Facility 04-18-2023 Procedure note [facility] Evaluation note Note Date & Type Note Facility Evaluation note No assessment information availa ble [facility] Work Phone: Evaluation note Note Date & Type Note Facility Evaluation note Diagnosis Onset Date Unintentional weight loss [place] Asthma-COPD overlap syndrome [facility] Work Phone: Evaluation note Note Date & Type Note Facility Evaluation note Diagnosis Onset Date Asthma-COPD overlap syndrome [facility] Work Phone: Chief Complaint and Reason for Visit Chief Complaint EORDER Chief Complaint EORDER COPD Chief Complaint EORDER COPD COPD Chief Complaint EORDER COPD COPD COPD, ASHTMA OVERLAP Reason for Visit Unintentional weight loss Asthma-COPD overlap syndrome Chief Complaint TROUBLE BREATHING PSA Reason for Visit Asthma-COPD overlap syndrome Chief Complaint PSA 1 Y FU CHEST PAIN Chronic obstructive pulmonary disease, unspecified Chronic obstructive pulmonary disease, unspecified Reason for Visit Asthma-COPD overlap syndrome Chief Complaint PSA 1 Y FU CHEST PAIN Chronic obstructive pulmonary disease, unspecified Chronic obstructive pulmonary disease, unspecified DIZZINESS/HYPOTENSION Reason for Visit Asthma-COPD overlap syndrome Chief Complaint 1 Y FU CHEST PAIN Chronic obstructive pulmonary disease, unspecified Chronic obstructive pulmonary disease, unspecified DIZZINESS/HYPOTENSION COPD Reason for Visit Asthma-COPD overlap syndrome Chief Complaint DIZZINESS/HYPOTENSIO N COPD Family History No Family History Records Found Relationship Condition Age at Onset Recorded Date/T vict[place] mother Hypertension Unknown father Chronic obstructive pulmonary disease Unk nown Advance Directives No Advanced Directives Records Found Advance Directive Response Recorded Date/ Time Advance Directives No February 07, 2016 9:11am Living Will No August 04 11:54am Power of Pulp Grinder No August 04, 2020 11:54am Advance Directive Response Recorded Date/ Time Advance Directives No February 07, 2016 9:11am Living Will No April 04 12:36pm Power of Pulp Grinder No April 04, 2023 12:36pm Advance Directive Response Recorded Date/ Time Advance Directives No February 07, 2016 8:11am Living Will No April 04 11:36am Power of Pulp Grinder No April 04, 2023 11:36am Summary Purpose Additional Source Comments Goals (unrecognized section and content) Goals may be documented in a n alternate sectionGoals may be documented in an alternate sectionGoals may be documented in an alternate sectionGoals may be documented in an alternate sectionGoals may be documented in an alternate sectionGoals may be documented in an alternate sectionGoals may be documented in an alternate sectionGoals may be documented in an alternate sectionGoals may be documented in an alternate sectionGoals may be documented in an alternate section Care Teams (unrecognized sec tion and content) Team Status: Active Member Role Status Dates Dr. Aldo Ball MD Family Provider Active Dr. Aldo Ball MD Primary Care Provider Active Team Status: Inactive Member Role Status Dates Dr. Aldo Ball MD Primary Care Provider, Attending P rovider Active Team Status: Inactive Member Role Status Dates Dr. Aldo Ball MD Primary Care Provider, Referring P rovider Active Taylor Naranjo SOFTWARE APPLICATIONS ENGINEER, SOFTWARE APPLICATIONS ENGINEER-C Attending Provider Active Team Status: Inactive Member Role Status Dates Dr. Aldo Ball MD Primary Care Provider Active Dr. German Barajas MD Attending Provider, Referr ing Provider Active Team Status: Inactive Member Role Status Dates Dr. Aldo Ball MD Primary Care Provider, Referring P rovider Active Dr. Uvaldo Mcintyre MD Attending Provider Active Team Status: Active Member Role Status Dates Dr. Aldo Ball MD Primary Care Provider Active Dr. Uvaldo Mcintyre MD Attending Provider , Referring Provider, Other Provider Active Team Status: Inactive Member Role Status Dates Dr. Aldo Ball MD Primary Care Provider Active Dr. Uvaldo Mcintyre MD Attending Provider, Referring Pr ovider Active Team Status: Inactive Member Role Status Dates Dr. Aldo Ball MD Primary Care Provider Active Dr. Mayi Coburn DO Attending Provider, Emergency Pro vider Active Team Status: Inactive Member Role Status Dates Dr. Aldo Ball MD Primary Care Provider Active Ed Physician Provider Emergency Provider Active Team Status: Inactive Member Role Status Dates Dr. Aldo Ball MD Primary Care Provide r, Attending Provider, Referring Provider Active Team Status: Inactive Member Role Status Dates Dr. Aldo Ball MD Primary Care Provider Active Ed Physician Provider Attending Provider, Emergency Pr ovider Active (unrecognized sect ion and content) No Status Records Found INFORMATION SOURCE (unrecogn ized section and content) DATE CREATED AUTHOR 07/16/2024 [facility] FOR RECORDS PERTAINING TO PATIENTS WHO ARE OR HAVE BEEN ENROLLED IN A CHEMICAL DEPENDENCY/SUBSTANCEABUSE PROGRAM, SOME INFORMATION MAY BE OMITTED. This clinical summary was aggregated from multiple sources. Caution should be exercised in using it in the provision of clinical care. This summary normalizes information from multiple sources, and as a consequence, information in this document may materially change the coding, format and clinical context of patient data. In addition, data may be omitted in some cases. CLINICAL DECISIONS SHOULD BE BASED ON THE PRIMARY CLINICAL RECORDS. [facility] provides no warranty or guarantee of the accuracy or completeness of information in this document.
== END | disposition home or self-care (01) ==
PROVIDERS: PCP Family Medicine; Referring Provider Nurse Practitioner; Visit Provider Nurse Practitioner
DX: Z12.5 Encounter for screening for malignant neoplasm of prostate (principal)
CPT/HCPCS: 36415; 84153; G0103

== ENCOUNTER → 2025-03-24 | Outpatient (CLI) | payer MEDICARE, SELFPAY ==
--- NOTE | 2025-03-24 14:54 | CT_ITS ---
PROCEDURE: CTA CHEST W/WO CONTRAST 03/24/2025 REASON FOR EXAM: PAIN IN THORACIC SPINE TECHNIQUE: Procedure Code: [id number] Modality: CT Procedure: CTA CHEST W/WO CONTRAST Multiplanar Sagittal and Coronal images were obtained. 3D post processing was performed CONTRAST: Isovue 370 VOLUME: 100 mL One or more dose reduction techniques were used (e.g., Automated exposure control, adjustment of the mA and/or kV according to patient size, use of iterative reconstruction technique). RADIATION DOSE SUMMARY: CTDlvol: 12 mGy DLP: 232 mGycm COMPARISON: December 16, 2021 # of known CTs in the past 12 months: 0 # of known Cardiac Nuclear Medicine Studies in the past 12 months: 0 FINDINGS: Thoracic Aorta: The timing and quality of the contrast bolus is diagnostic. Mild atherosclerotic plaque is present without aneurysm. Left vertebral artery originates directly from the aortic arch. Heart: Heart is normal size. No pericardial effusion. Coronary arteries are unremarkable. Pulmonary Vessels: The timing and quality of the contrast bolus is diagnostic. There is no evidence of acute or chronic pulmonary embolus. Hardware: None Lymph nodes: Normal Lungs and Airways: Upper lobe predominant centrilobular emphysema. No mass, consolidation or worrisome nodule. Linear scarring of the lower lobes medially. Pleura: No pleural effusion or pneumothorax. Upper Abdomen: Unremarkable Bones: Unremarkable CT/CTA Chest W/WO Contrast IMPRESSION: 1. No evidence of acute or chronic pulmonary embolus. 2. No acute aortic syndrome. 3. Centrilobular emphysema. Linear scarring/atelectasis both lower lobes. Reading Location: [id number]
== END | disposition home or self-care (01) ==
LOC: CT 14:47
PROVIDERS: PCP Family Medicine; Referring Provider Family Medicine; Visit Provider Family Medicine
DX: M54.6 Pain in thoracic spine (principal)
CPT/HCPCS: 71275; Q9967

== ENCOUNTER → 2025-04-23 | Outpatient (CLI) | payer MEDICARE, SELFPAY ==
--- NOTE | 2025-04-23 11:03 | ECHOD_ITS ---
Reason For Study ECHO/Echo Complete
== END | disposition home or self-care (01) ==
PROVIDERS: PCP Family Medicine; Referring Provider Internal Medicine Cardiovascular Disease; Visit Provider Internal Medicine Cardiovascular Disease
DX: R94.31 Abnormal electrocardiogram [ECG] [EKG] (principal)
CPT/HCPCS: 93306